=== PATIENT | female | born 1965 | race Caucasian/White ===

== ENCOUNTER 2021-03-28 22:35 | Emergency (ER) | payer MEDICAID, SELFPAY ==
[2021-03-28 22:38] VITALS: BP 132/93; PULSE 105; RESP 18; TEMP 37.2; O2SAT 100; BMI 20.7
--- NOTE | 2021-03-28 22:50 | ED_ITS ---
HPI - Skin/Abscess/Foreign Bdy General Chief complaint: Skin/Abscess/Foreign Body Stated complaint: abscesses on face Time Seen by Provider: 03/28/21 22:48 Source: patient Mode of arrival: ambulatory Limitations: no limitations History of Present Illness MD complaint: laceration and lesion Onset (ago): day(s) (7) Tetanus up to date: yes Location: face Severity: mild Quality: pruritic Pain Consistency: constant Relieving factors: none Exacerbating factors: none Context: none Associated symptoms: denies other symptoms Treatments prior to arrival: other (tried alcohol/calamine lotion) Related Data Previous Rx's Medication Instructions Recorded cephalexin 500 mg capsule 500 mg PO BID 7 Days #14 cap 03/28/21 doxycycline hyclate 100 mg capsule 100 mg PO BID 7 Days #14 cap 03/28/21 mupirocin 2 % topical ointment 1 appl TOPICAL BID 7 Days #15 g 03/28/21 Allergies Allergy/AdvReac Type Severity Reaction Status Date / Time From Haldol Allergy Unknown LOCKJAW Uncoded 04/07/20 17:00 Review of Systems Review of Systems: Constitutional : No Fever, No Chills ENT/Mouth : No sore throat, No Rhinorrhea Eyes: No Eye Pain, No Swelling, No Redness Cardiovascular : No Chest Pain, No SOB Respiratory : No Cough, No Sputum Gastrointestinal : No Nausea, No Vomiting, No Diarrhea, No abdominal Pain Genitourinary : No Dysuria, No Hematuria Musculoskeletal : No joint pain, No Myalgias, No Joint Swelling Skin : pos Skin Lesions, positive skin rash Neuro : No Weakness, No Numbness, No Headache PMFSH Past Medical History Attestation statement: The following information was validated with the patient. Medical History ADHD Gastric ulcer Social History Social History (Updated 03/28/21 @ 23:01 by Radha Zheng DO) Patient Tobacco Use Status: Never used Tobacco Use of substances other than those prescribed or required for medical reasons: No Patient : No Physical Exam Vital Signs: Vital Signs: Last Vital Signs Temp 98.9 F 03/28/21 22:38 Pulse 105 H 03/28/21 22:38 Resp 18 03/28/21 22:38 BP 132/93 H 03/28/21 22:38 Pulse Ox 100 03/28/21 22:38 Body Mass Index 20.7 Appearance: Alert. Oriented X3. No acute distress. Eyes: Pupils equal, round and reactive to light. ENT: Pharynx normal. multiple circular lesions noted on the face with yellow center and surrounding mild erythema 8+ lesions on face no large confluent areas Neck: Normal inspection. Neck supple. CVS: Normal heart rate and rhythm. Pulses normal. Respiratory: No respiratory distress. Breath sounds normal. Abdomen: Soft and nontender. Skin: Skin warm and dry. Normal skin color. Extremities: No lower extremity edema. Neuro: Oriented X 3. No motor deficit. No sensory deficit. MDM - Skin/Abscess/Foreign Bdy MDM Narrative Medical decision making narrative: 55 yo female with multiple lesions on face with mild cellulitis ?bites or excoriated areas from picking - will start on a ntibiotics and topical mupirocin - refer to PCP if not better Discharge Plan Discharge Clinical Impression: Cellulitis Qualifiers: Site of cellulitis: face Qualified Code(s): L03.211 - Cellulitis of face Patient Disposition: Home, Self-Care Instructions: Cellulitis (ED) Additional Instructions: return to ED for any worsening symptoms or concerns do not apply rubbing alcohol Prescriptions: New doxycycline hyclate 100 mg capsule 100 mg PO BID 7 Days Qty: 14 RF: 0 cephalexin 500 mg capsule 500 mg PO BID 7 Days Qty: 14 RF: 0 mupirocin 2 % ointment 1 appl topical BID 7 Days Qty: 15 RF: 0
== END 2021-03-28 23:20 | disposition home or self-care (01) ==
PROVIDERS: Emergency Provider Emergency Medicine; PCP Nurse Practitioner Family
DX: L03.211 Cellulitis of face (principal)
CPT/HCPCS: 99283

== ENCOUNTER 2021-04-12 18:29 | Emergency (ER) | payer MEDICAID, SELFPAY ==
--- NOTE | 2021-04-12 | ECG_ITS ---
Test Reason : CHEST PRESSURE Blood Pressure : / mmHG Vent. Rate : 111 BPM Atrial Rate : 111 BPM P-R Int : 140 ms QRS Dur : 102 ms QT Int : 352 ms P-R-T Axes : 073 078 051 degrees QTc Int : 478 ms Sinus tachycardia Nonspecific ST and T wave abnormality Abnormal ECG When compared with ECG of 25-JUN-2017 16:00, Nonspecific T wave abnormality now evident in Inferior leads Referred By: Generic ED Physician Electronically Signed By:MANDO BOOKER
--- NOTE | ~2021-04-12 | XR_ITS ---
EXAMINATION: XR CHEST CLINICAL INFORMATION: Chest pain. COMPARISON: 06/27/2017 TECHNIQUE: 2 views of the chest were obtained. FINDINGS: The cardiomediastinal and hilar contours are within normal limits. The lungs are clear without focal consolidation, pleural effusion or pneumothorax. Orthopedic hardware involving the left humeral head is partially visualized. Chronic left-sided rib fractures are redemonstrated. XR/XR chest 2V IMPRESSION: No acute process identified.
--- NOTE | ~2021-04-12 | XR_ITS ---
EXAMINATION: XR ABDOMEN KUB CLINICAL INDICATION: Constipation. COMPARISON: None TECHNIQUE: AP view of the abdomen. FINDINGS: There is a deasnsfy-fq-ppqrt stool burden throughout the colon. No pathologically dilated loops of small or large bowel are identified. No large free air is seen. A heterogeneous round calcification which overlies the right hemipelvis and measures 2.6 cm is favored to represent a degenerated fibroid. Small calcifications overlie the low pelvis consistent with phleboliths. The osseous structures are within normal limits. XR/XR KUB IMPRESSION: 1. Dihqpuxy-en-rxvpt stool burden. 2. Nonspecific bowel gas pattern. No pathologically dilated loops of bowel identified.
--- NOTE | ~2021-04-12 | CT_ITS ---
EXAMINATION: CT ABDOMEN AND PELVIS WITH CONTRAST CLINICAL INFORMATION: Abdominal pain and constipation, rule out small bowel obstruction. COMPARISON: KUB from today. TECHNIQUE: Multidetector volumetric images were obtained from the superior aspect of the liver through the pubic symphysis following administration 85 mL of Omnipaque 350 intravenous contrast. Sagittal and coronal reformatted images were obtained on the technologist's workstation. Motion artifact limits some images in the inferior chest and mid abdomen. Oral contrast: No This CT examination was performed using dose optimization techniques as appropriate, variously including the following: *Automated exposure control *Adjustment of mA and/or kV according to patient size (this includes techniques or standardized protocols for targeted exams where dose is matched to indication/reason for exam; i.e. extremities or head) *Use of iterative reconstruction technique DLP: 357 mGy-cm FINDINGS: LUNG BASES: The visualized lung bases are unremarkable. LIVER, GALLBLADDER, AND BILIARY TREE: Unremarkable. PANCREAS: Unremarkable. SPLEEN: Unremarkable. ADRENAL GLANDS: Unremarkable. KIDNEYS AND URETERS: Unremarkable. BLADDER: Unremarkable. GASTROINTESTINAL TRACT: The stomach, small bowel and appendix are unremarkable. Mild diffuse mural thickening and loss of haustration is seen in the descending colon. This is seen to a lesser extent in the sigmoid colon, but is also seen in the rectum. No pericolonic infiltrative changes are seen. ABDOMINAL WALL: No significant hernia is appreciated. LYMPH NODES: No lymphadenopathy. VASCULAR: Unremarkable. PELVIC VISCERA: Fibroid uterus, some with coarse calcification involves the largest in the posterior body. OSSEOUS STRUCTURES: Mild lumbar levoscoliosis mild multilevel degenerative disc disease from L3-L4 and L5-S1. No suspicious abnormality. CT/CT abdomen pelvis w con IMPRESSION: 1. No small bowel obstruction. Mild mural thickening and loss of haustration is seen in the distal colon and rectum, most pronounced in the descending colon. No significant surrounding infiltrative changes are seen. These findings are nonspecific, but given the long segment of involvement, infectious/inflammatory colitis cannot be excluded. The overall appearance is similar to the KUB from earlier today. Short-term radiographic follow-up is recommended within 24 hours to assess for change.
[2021-04-12 19:06] VITALS: BP 170/88; PULSE 117; RESP 16; O2SAT 98; BMI 20.5
[2021-04-12] MEDS: Ibuprofen 600 MG TABLET PO (19:13)
[2021-04-12 20:37] LABS: Basophils Percent Auto 0.1 % (0-2); Eosinophils Percent Auto 0.3 % (0-4); Hematocrit 36.4 % (37-47); Hemoglobin 12.1 g/dl (12.0-16.0); Imm Gran Abs Auto 0.03 X10*3/uL (0.00-0.03); Imm Gran Pct Auto 0.3 % (0.0-0.4); Lymphocytes Absolute Auto 1.5 X10*3/uL (1.2-4.9); Lymphocytes Percent Auto 14.5 % (20-40); MANUAL DIFF FLAG NO; Mean Corpuscular HGB Conc 33.2 g/dl (31.0-35.0); Mean Corpuscular Hemoglobin 28.8 pg (27.0-33.0); Mean Corpuscular Volume 86.7 fL (80-98); Monocytes Absolute Auto 0.7 X10*3/uL (0.1-1.2); Monocytes Percent Auto 7.1 % (2-11); Neutrophils Absolute Auto 7.9 X10*3/uL (2.0-8.3); Neutrophils Percent Auto 77.7 % (45-73); Platelet Count 331 X10*3/uL (160-400); Red Cell Distribution Width 14.9 % (11.0-16.0); White Blood Count 10.2 X10*3/uL (4.8-10.8)
[2021-04-12 20:38] LABS: Appearance Urine HAZY; Color Urine YELLOW; Glucose Urine UA NEG (NEG); Leukocyte Esterase Urine NEG (NEG); Nitrite Urine NEG (NEG); PH 5.5 (5.0-8.0); Specific Gravity - Urine >= 1.030 (1.005-1.025); Urine Blood NEG (NEG); Urine Ketones NEG (NEG); Urine Protein NEG (NEG-TRACE)
[2021-04-12 20:51] LABS: Alanine Aminotransferase 18 U/L (0-31); Albumin Level 4.6 g/dL (3.5-5.0); Alkaline Phosphatase 81 U/L (39-117); Anion Gap 14 (12-20); Aspartate Amino Transferase 26 U/L (5-31); Bilirubin Total 0.3 mg/dL (0.0-1.0); Blood Urea Nitrogen 15 mg/dL (9-16); Calcium 10.2 mg/dL (8.4-10.2); Carbon Dioxide 27 mmol/L (22-29); Chloride 97 mmol/L (96-108); Creatinine Clr Calc Pharmacy 62.1; Estimated Glomerular Filt Rate > 60; Glucose Random 107 mg/dL (60-115); Potassium 4.1 mmol/L (3.3-5.1); Sodium 134 mmol/L (135-145); Total Protein 7.5 g/dL (6.5-8.0)
[2021-04-12 20:56] LABS: Troponin-I High Sensitivity 3.7 ng/L (<3.5-17.0)
--- NOTE | 2021-04-12 21:24 | ED_ITS ---
HPI - Abdominal Pain General Chief Complaint: Abdominal Pain Stated Complaint: Abdominal pain Time Seen by Provider: 04/12/21 20:45 Source: patient Mode of arrival: ambulatory Limitations: no limitations History of Present Illness HPI narrative: 55-year-old female with a past medical history of anxiety, depression, ADD, peptic ulcer, divert here with complaints of lower back pain with radiation to the entire abdomen for several days. Patient tells me that she has had constipation for the last 10 days with small pebble like stools. She has not tried taking any wyzg-cih-niokhfa medications to help her move her bowels. She denies any nausea, vomiting, and diarrhea, urinary symptoms, fevers, chills. Patient tells me that she has been anxious for the last 2 days. She is currently living in a hotel and has no family in this area after her parents .. Related Data Previous Rx's Medication Instructions Recorded cephalexin 500 mg capsule 500 mg PO BID 7 Days #14 cap 03/28/21 doxycycline hyclate 100 mg capsule 100 mg PO BID 7 Days #14 cap 03/28/21 mupirocin 2 % topical ointment 1 appl TOPICAL BID 7 Days #15 g 03/28/21 levofloxacin 750 mg tablet 750 mg PO DAILY 7 Days #7 tab 04/12/21 metronidazole 500 mg tablet 500 mg PO BID #14 tab 04/12/21 (Flagyl) Allergies Allergy/AdvReac Type Severity Reaction Status Date / Time From Haldol Allergy Unknown NERYW Uncoded 04/07/20 17:00 Review of Systems Review of Systems Yes all other systems are reviewed and are negative Constitutional: Reports no additional constitutional complaints, Denies body ache(s), Denies chills, Denies fever(s), Denies headache(s) and Denies weakness Eyes: Reports no additional eye complaints and Denies change in vision Reports system reviewed and no additional complaints, except as documented, Denies dizziness, Denies headache(s), Denies nasal congestion, Denies nasal discharge and Denies neck pain Cardiovascular: Reports no additional cardiovascular complaints, Denies chest pain, Denies leg edema and Denies dyspnea Respiratory: Reports no additional respiratory complaints, Denies cough and Denies dyspnea Gastrointestinal: Reports no additional gastrointestinal complaints, Reports abdominal pain, Reports constipation, Denies diarrhea, Denies nausea and Denies vomiting Genitourinary: Reports no additional female genitourinary complaints and Denies urinary incontinence Musculoskeletal: Reports no additional musculoskeletal complaints, Reports back pain, Denies arthralgias, Denies joint swelling, Denies neck pain, Denies numbness and Denies tingling Skin/Breast: Reports system reviewed and no additional complaints, except as docu and Denies rash Reports system reviewed and no additional complaints, except as documented, Denies Abnormal speech present, Denies dizziness, Denies headache(s), Denies numbness, Denies tingling and Denies weakness Physical Exam Vital Signs: Vital Signs: Last Vital Signs Pulse 117 H 04/12/21 19:06 Resp 16 04/12/21 19:06 BP 170/88 H 04/12/21 19:06 Pulse Ox 98 04/12/21 19:06 Body Mass Index 20.5 Const: General: cooperative, healthy appearing, comfortable and no acute distress Orientation/consciousness: patient oriented x3 Limitations: no limitations HENMT: Head: Yes normal to inspection Ears: hearing grossly normal bilaterally General nose exam: Normal external nose present Face and sinus: Yes normal facial exam Mouth: Normal oral and palatal mucosa present Throat: Yes posterior oropharynx normal Eyes: General: appearance normal, both eyes and all related structures Pupils: Equal, round and reactive pupils present Neck: Neck: Yes normal visual inspection Chest: Chest palpation & inspection: normal inspection of the chest Resp: Effort & Inspection: normal respiratory effort Auscultation: clear to auscultation bilaterally Cardio: Rate: regular rate Rhythm: regular rhythm Peripheral pulses: Peripheral pulses 2+ throughout GI: Inspection: Yes normal to inspection Palpation (GI): Soft to palpation and Tenderness to palpation present (GI) (Diffusely tender. No rebound or guarding) Auscultation: normal bowel sounds Back/Spine/Pelvis: Thoracic/Lumbar Spine: thoracic and lumbar spine normal to inspection Skin: General skin exam: no rashes or lesions noted Neuro: General: patient oriented x3, no focal motor deficits and normal sensation to monofilament Cranial nerves: Yes Equal, round and reactive pupils present Cognition (Neuro): normal cognition Speech: No Abnormal speech present Gait exam (Neuro): Normal gait present Motor exam (neuro): 5/5 motor strength present throughout Extrem: General: Yes normal to inspection Course Course Course Narrative: 55-year-old female here with complaints of generalized back pain and abdominal pain with constipation. On exam mild diffuse tenderness with no rebound or guarding. Patient very anxious, multiple life stressors. Will check labs, UA, EKG, CT 2230-labs unremarkable. Urine is negative. EKG shows no acute finding CT A/P 1. No small bowel obstruction. Mild mural thickening and loss of haustration is seen in the distal colon and rectum, most pronounced in the descending colon. No significant surrounding infiltrative changes are seen. These findings are nonspecific, but given the long segment of involvement, infectious/inflammatory colitis cannot be excluded. The overall appearance is similar to the KUB from earlier today. Short-term radiographic follow-up is recommended within 24 hours to assess for change. Likely colitis. Will treat with course of antibiotics. Patient is tolerating p.o.. Pain is well controlled. Recommend she follow up with her primary care doctor. She also also concerned still over some areas on her skin after diagnosis cellulitis a couple of weeks ago. She tells me she has you took the antibiotics and applying topical antibiotic ointment with continued lesions. She is requesting a topical retin A or topical steroid. 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 Reviewed worrisome signs and symptoms and when to return to the emergency department. Comfortable discharge home. MDM - Abdominal Pain Medical Records Attestation: I reviewed the patient's medical records. Lab Data Attestation: I reviewed the patient's lab results. Result diagrams: 04/12/21 20:29 04/12/21 20:29 Labs: Lab Results 04/12/21 04/12/21 04/12/21 Range/Units 20:29 20:29 20:29 WBC 10.2 (4.8-10.8) X10*3/uL RBC 4.20 (4.20-5.50) X10*6/uL Hgb 12.1 (12.0-16.0) g/dl Hct 36.4 L (37-47) % MCV 86.7 (80-98) fL MCH 28.8 (27.0-33.0) pg MCHC 33.2 (31.0-35.0) g/dl RDW 14.9 (11.0-16.0) % Plt Count 331 (160-400) X10*3/uL MPV 10.0 (9.4-12.3) fL Immature Gran % (Auto) 0.3 (0.0-0.4) % Neut % (Auto) 77.7 H (45-73) % Lymph % (Auto) 14.5 L (20-40) % [place] % (Auto) 7.1 (2-11) % Eos % (Auto) 0.3 (0-4) % Baso % (Auto) 0.1 (0-2) % Lymph # (Auto) 1.5 (1.2-4.9) X10*3/uL [place] # (Auto) 0.7 (0.1-1.2) X10*3/uL Eos # (Auto) 0.0 (0.0-0.4) X10*3/uL Baso # (Auto) 0.0 (0.0-0.2) X10*3/uL Abs Immat Gran (auto) 0.03 (0.00-0.03) X10*3/uL Absolute Neuts (auto) 7.9 (2.0-8.3) X10*3/uL Absolute Nucleated RBC 0.000 (0.0-0.012) X10*3/uL Nucleated RBC % (auto) 0.0 (0.0-0.2) /100WBC Sodium 134 L (135-145) mmol/L Potassium 4.1 (3.3-5.1) mmol/L Chloride 97 (96-108) mmol/L Carbon Dioxide 27 (22-29) mmol/L Anion Gap 14 (12-20) BUN 15 (9-16) mg/dL Creatinine 0.88 (0.5-1.4) mg/dL Estim Creat Clear Calc 62.1 Estimated GFR > 60 Random Glucose 107 (60-115) mg/dL Lactic Acid (0.5-2.0) mmol/L Calcium 10.2 (8.4-10.2) mg/dL Total Bilirubin 0.3 (0.0-1.0) mg/dL AST 26 (5-31) U/L ALT 18 (0-31) U/L Alkaline Phosphatase 81 (39-117) U/L Troponin I High Sens 3.7 (<3.5-17.0) ng/L Total Protein 7.5 (6.5-8.0) g/dL Albumin 4.6 (3.5-5.0) g/dL Urine Color Urine Appearance Urine pH (5.0-8.0) Ur Specific [place] (1.005-1.025) Urine Protein (NEG-TRACE) MG/DL Urine Glucose (UA) (NEG) MG/DL Urine Ketones (NEG) MG/DL Urine Blood (NEG) Urine Nitrite (NEG) Ur Leukocyte Esterase (NEG) 04/12/21 04/12/21 Range/Units 20:29 21:10 WBC (4.8-10.8) X10*3/uL RBC (4.20-5.50) X10*6/uL Hgb (12.0-16.0) g/dl Hct (37-47) % MCV (80-98) fL MCH (27.0-33.0) pg MCHC (31.0-35.0) g/dl RDW (11.0-16.0) % Plt Count (160-400) X10*3/uL MPV (9.4-12.3) fL Immature Gran % (Auto) (0.0-0.4) % Neut % (Auto) (45-73) % Lymph % (Auto) (20-40) % [place] % (Auto) (2-11) % Eos % (Auto) (0-4) % Baso % (Auto) (0-2) % Lymph # (Auto) (1.2-4.9) X10*3/uL [place] # (Auto) (0.1-1.2) X10*3/uL Eos # (Auto) (0.0-0.4) X10*3/uL Baso # (Auto) (0.0-0.2) X10*3/uL Abs Immat Gran (auto) (0.00-0.03) X10*3/uL Absolute Neuts (auto) (2.0-8.3) X10*3/uL Absolute Nucleated RBC (0.0-0.012) X10*3/uL Nucleated RBC % (auto) (0.0-0.2) /100WBC Sodium (135-145) mmol/L Potassium (3.3-5.1) mmol/L Chloride (96-108) mmol/L Carbon Dioxide (22-29) mmol/L Anion Gap (12-20) BUN (9-16) mg/dL Creatinine (0.5-1.4) mg/dL Estim Creat Clear Calc Estimated GFR Random Glucose (60-115) mg/dL Lactic Acid 1.4 (0.5-2.0) mmol/L Calcium (8.4-10.2) mg/dL Total Bilirubin (0.0-1.0) mg/dL AST (5-31) U/L ALT (0-31) U/L Alkaline Phosphatase (39-117) U/L Troponin I High Sens (<3.5-17.0) ng/L Total Protein (6.5-8.0) g/dL Albumin (3.5-5.0) g/dL Urine Color YELLOW Urine Appearance HAZY Urine pH 5.5 (5.0-8.0) Ur Specific [place] >= 1.030 H (1.005-1.025) Urine Protein NEG (NEG-TRACE) MG/DL Urine Glucose (UA) NEG (NEG) MG/DL Urine Ketones NEG (NEG) MG/DL Urine Blood NEG (NEG) Urine Nitrite NEG (NEG) Ur Leukocyte Esterase NEG (NEG) Imaging Data Chest x-ray: Attestation: I personally reviewed and interpreted this imaging study as follows: Radiologist's impression: XR CHEST CLINICAL INFORMATION: Chest pain. COMPARISON: 06/27/2017 TECHNIQUE: 2 views of the chest were obtained. FINDINGS: The cardiomediastinal and hilar contours are within normal limits. The lungs are clear without focal consolidation, pleural effusion or pneumothorax. Orthopedic hardware involving the left humeral head is partially visualized. Chronic left-sided rib fractures are redemonstrated. XR/XR chest 2V IMPRESSION: No acute process identified. Abdominal x-ray: Attestation: I personally reviewed and interpreted this imaging study as follows: Radiologist's impression: e? TECHNIQUE: AP view of the abdomen. FINDINGS: There is a ksvzglje-qn-eblqj stool burden throughout the colon. No pathologically dilated loops of small or large bowel are identified. No large free air is seen. A heterogeneous round calcification which overlies the right hemipelvis and measures 2.6 cm is favored to represent a degenerated fibroid. Small calcifications overlie the low pelvis consistent with phleboliths. The osseous structures are within normal limits. XR/XR KUB IMPRESSION: 1. Txtiknyy-fk-lqdtb stool burden. ? 2. Nonspecific bowel gas pattern. No pathologically dilated loops of bowel identified. ? CT scan - abdomen: Attestation: I personally reviewed and interpreted this imaging study as follows: Radiologist's impression: IMPRESSION: 1. No small bowel obstruction. Mild mural thickening and loss of haustration is seen in the distal colon and rectum, most pronounced in the descending colon. No significant surrounding infiltrative changes are seen. These findings are nonspecific, but given the long segment of involvement, infectious/inflammatory colitis cannot be excluded. The overall appearance is similar to the KUB from earlier today. Short-term radiographic follow-up is recommended within 24 hours to assess for change. ECG Data Attestation: I personally reviewed and interpreted this ECG as follows: ECG interpretation date: 04/12/21 ECG interpretation time: 20:24 Interpretation: Sinus tachycardia with a rate of 111, normal MS, normal QRS, nonspecific ST changes Discharge Plan Discharge Clinical Impression: Colitis Patient Disposition: Home, Self-Care Instructions: Colitis (ED) Additional Instructions: Increase fluids, rest You need to follow-up with your primary care doctor as discussed Continue the topical antibiotic ointment for the skin heat to the abdomen Prescriptions: New metronidazole [Flagyl] 500 mg tablet 500 mg PO BID Qty: 14 RF: 0 levofloxacin 750 mg tablet 750 mg PO DAILY 7 Days Qty: 7 RF: 0 No Action doxycycline hyclate 100 mg capsule 100 mg PO BID 7 Days Qty: 14 RF: 0 cephalexin 500 mg capsule 500 mg PO BID 7 Days Qty: 14 RF: 0 mupirocin 2 % ointment 1 appl topical BID 7 Days Qty: 15 RF: 0 Referrals: Lissy Grijalva NP [Primary Care Provider] - 2 days Interventions: ED Discharge Assessment Last Done: 04/12/21 22:50 Discharge Date/Time: 04/12/21 23:03 [facility] Past Medical History Attestation statement: The following information was validated with the patient. Source: old records reviewed and nursing notes reviewed Medical History ADHD Gastric ulcer Social History Social History Patient Tobacco Use Status: Never used Tobacco Advance Directives: No Advance Directives Information Provided: Yes
[2021-04-12 21:26] LABS: Lactic Acid 1.4 mmol/L (0.5-2.0)
[2021-04-12] MEDS: iohexoL 350 MG/ML 100 ML INFUS..BTL IV (21:35)
== END 2021-04-12 23:03 | disposition home or self-care (01) ==
PROVIDERS: Nurse Practitioner Family; Emergency Provider Emergency Medicine; PCP Nurse Practitioner Family
DX: K52.9 Noninfective gastroenteritis and colitis, unspecified (principal); R10.9 Unspecified abdominal pain; F33.1 Major depressive disorder, recurrent, moderate; M54.5 Low back pain; R07.9 Chest pain, unspecified; Z79.899 Other long term (current) drug therapy
CPT/HCPCS: 36415; 71046; 74018; 74177; 80053; 81003; 83605; 84484; 85025; 93005; 99284; Q9967

== ENCOUNTER 2021-06-20 11:43 | Emergency (ER) | payer MEDICARE, MEDICAID, SELFPAY ==
[2021-06-20 12:18] VITALS: BP 134/82; PULSE 100; RESP 18; O2SAT 100; BMI 20.7
--- NOTE | 2021-06-20 13:52 | ED_ITS ---
[facility] Past Medical History Medical History ADHD Gastric ulcer Social History Social History Patient Tobacco Use Status: Never used Tobacco Advance Directives: No Advance Directives Information Provided: No Physical Exam Vital Signs: Vital Signs: Last Vital Signs Pulse 100 06/20/21 12:18 Resp 18 06/20/21 12:18 BP 134/82 06/20/21 12:18 Pulse Ox 100 06/20/21 12:18 Body Mass Index 20.7 MDM - Burn/Smoke Inhalation Lab Data Result diagrams: 06/20/21 14:55 06/20/21 14:55 Labs: Lab Results 06/20/21 06/20/21 06/20/21 Range/Units 14:50 14:55 14:55 WBC 12.0 H (4.8-10.8) X10*3/uL RBC 4.03 L (4.20-5.50) X10*6/uL Hgb 11.9 L (12.0-16.0) g/dl Hct 35.8 L (37.0-47.0) % MCV 88.8 (80.0-98.0) fL MCH 29.5 (27.0-33.0) pg MCHC 33.2 (31.0-35.0) g/dl RDW 14.3 (11.0-16.0) % Plt Count 430 H (160-400) X10*3/uL MPV 9.9 (9.4-12.3) fL Immature Gran % (Auto) 0.3 (0.0-0.4) % Neut % (Auto) 81.0 H (45-73) % Lymph % (Auto) 12.1 L (20-40) % [place] % (Auto) 5.6 (2-11) % Eos % (Auto) 0.8 (0-4) % Baso % (Auto) 0.2 (0-2) % Lymph # (Auto) 1.5 (1.2-4.9) X10*3/uL [place] # (Auto) 0.7 (0.1-1.2) X10*3/uL Eos # (Auto) 0.1 (0.0-0.4) X10*3/uL Baso # (Auto) 0.0 (0.0-0.2) X10*3/uL Abs Immat Gran (auto) 0.04 H (0.00-0.03) X10*3/uL Absolute Neuts (auto) 9.7 H (2.0-8.3) x10*3/uL Absolute Nucleated RBC 0.000 (0.0-0.012) X10*3/uL Nucleated RBC % (auto) 0.0 (0.0-0.2) /100WBC Sodium 135 (135-145) mmol/L Potassium 4.7 (3.3-5.1) mmol/L Chloride 100 (96-108) mmol/L Carbon Dioxide 22 (22-29) mmol/L Anion Gap 18 (12-20) BUN 20 H (9-16) mg/dL Creatinine 0.93 (0.5-1.4) mg/dL Estim Creat Clear Calc 59.7 Estimated GFR > 60 Random Glucose 132 H (60-115) mg/dL Calcium 10.1 (8.4-10.2) mg/dL Magnesium 2.2 (1.6-2.6) mg/dL Total Bilirubin 0.3 (0.0-1.0) mg/dL AST 28 (5-31) U/L ALT 16 (0-31) U/L Alkaline Phosphatase 85 (39-117) U/L Total Protein 7.4 (6.5-8.0) g/dL Albumin 4.4 (3.5-5.0) g/dL Urine Color YELLOW Urine Appearance HAZY Urine pH 8.0 (5.0-8.0) Ur Specific [place] 1.015 (1.005-1.025) Urine Protein NEG (NEG-TRACE) MG/DL Urine Glucose (UA) NEG (NEG) MG/DL Urine Ketones NEG (NEG) MG/DL Urine Blood NEG (NEG) Urine Nitrite NEG (NEG) Ur Leukocyte Esterase NEG (NEG) Discharge Plan Discharge Clinical Impression: Abdominal pain, Back pain, Left against medical advice Patient Disposition: Left Against Medical Advice Prescriptions: No Action doxycycline hyclate 100 mg capsule 100 mg PO BID 7 Days Qty: 14 RF: 0 cephalexin 500 mg capsule 500 mg PO BID 7 Days Qty: 14 RF: 0 mupirocin 2 % ointment 1 appl topical BID 7 Days Qty: 15 RF: 0 metronidazole [Flagyl] 500 mg tablet 500 mg PO BID Qty: 14 RF: 0 levofloxacin 750 mg tablet 750 mg PO DAILY 7 Days Qty: 7 RF: 0 HPI - Burn/Smoke Inhalation General Chief complaint: Back Pain/Injury Stated complaint: Back Pain Side Pain No Injury Time Seen by Provider: 06/20/21 13:41 Related Data Previous Rx's Medication Instructions Recorded cephalexin 500 mg capsule 500 mg PO BID 7 Days #14 cap 03/28/21 doxycycline hyclate 100 mg capsule 100 mg PO BID 7 Days #14 cap 03/28/21 mupirocin 2 % topical ointment 1 appl TOPICAL BID 7 Days #15 g 03/28/21 levofloxacin 750 mg tablet 750 mg PO DAILY 7 Days #7 tab 04/12/21 metronidazole 500 mg tablet 500 mg PO BID #14 tab 04/12/21 (Flagyl) Allergies Allergy/AdvReac Type Severity Reaction Status Date / Time From Haldol Allergy Unknown NERYW Uncoded 04/07/20 17:00
[2021-06-20 15:06] LABS: MANUAL DIFF FLAG NO
[2021-06-20] MEDS: diazePAM 5 MG TABLET 10 MG PO (15:06)
[2021-06-20 15:08] LABS: Basophils Percent Auto 0.2 % (0-2); Eosinophils Absolute Auto 0.1 X10*3/uL (0.0-0.4); Eosinophils Percent Auto 0.8 % (0-4); Hematocrit 35.8 % (37.0-47.0); Hemoglobin 11.9 g/dl (12.0-16.0); Imm Gran Abs Auto 0.04 X10*3/uL (0.00-0.03); Imm Gran Pct Auto 0.3 % (0.0-0.4); Lymphocytes Absolute Auto 1.5 X10*3/uL (1.2-4.9); Lymphocytes Percent Auto 12.1 % (20-40); Mean Corpuscular HGB Conc 33.2 g/dl (31.0-35.0); Mean Corpuscular Hemoglobin 29.5 pg (27.0-33.0); Mean Corpuscular Volume 88.8 fL (80.0-98.0); Mean Platelet Volume 9.9 fL (9.4-12.3); Monocytes Absolute Auto 0.7 X10*3/uL (0.1-1.2); Monocytes Percent Auto 5.6 % (2-11); Neutrophils Absolute Auto 9.7 x10*3/uL (2.0-8.3); Platelet Count 430 X10*3/uL (160-400); Red Blood Count 4.03 X10*6/uL (4.20-5.50); Red Cell Distribution Width 14.3 % (11.0-16.0)
[2021-06-20 15:09] LABS: Appearance Urine HAZY; Color Urine YELLOW; Glucose Urine UA NEG (NEG); Leukocyte Esterase Urine NEG (NEG); Nitrite Urine NEG (NEG); Specific Gravity - Urine 1.015 (1.005-1.025); Urine Blood NEG (NEG); Urine Ketones NEG (NEG); Urine Protein NEG (NEG-TRACE)
[2021-06-20 15:27] LABS: Alanine Aminotransferase 16 U/L (0-31); Albumin Level 4.4 g/dL (3.5-5.0); Alkaline Phosphatase 85 U/L (39-117); Anion Gap 18 (12-20); Aspartate Amino Transferase 28 U/L (5-31); Bilirubin Total 0.3 mg/dL (0.0-1.0); Blood Urea Nitrogen 20 mg/dL (9-16); Calcium 10.1 mg/dL (8.4-10.2); Carbon Dioxide 22 mmol/L (22-29); Chloride 100 mmol/L (96-108); Creatinine Clr Calc Pharmacy 59.7; Estimated Glomerular Filt Rate > 60; Glucose Random 132 mg/dL (60-115); Magnesium 2.2 mg/dL (1.6-2.6); Potassium 4.7 mmol/L (3.3-5.1); Sodium 135 mmol/L (135-145); Total Protein 7.4 g/dL (6.5-8.0)
--- NOTE | 2021-06-20 15:44 | ED.BACK ---
HPI - Back Pain/Injury General Chief Complaint: Back Pain/Injury Stated Complaint: Back Pain Side Pain No Injury Time Seen by Provider: 06/20/21 13:41 Source: patient Mode of arrival: ambulatory Limitations: no limitations History of Present Illness HPI Narrative: 55-year-old female with a past medical history anxiety, depression, ADD, peptic ulcer and diverticulosis presenting to the ED with complaints of atraumatic mid to lower back pain radiating to her abdomen for the past month worse today. Denies any fevers, chills, dizziness, headaches, neck pain/stiffness, trouble swallowing or breathing, chest pain or shortness of breath, dyspnea on exertion, orthopnea, palpitations, nausea/vomiting/diarrhea, constipation, black or bloody stools, rashes, hematuria, paresthesias, history of IV drug use or any other symptoms complaints or concerns at this time. Reports that she is currently on Suboxone and has been sober for the past 3 months. Reports that she last used heroin where she sniffed she never used IV drugs she reports. Denies any other symptoms complaints or concerns. MD elicited complaint: back pain Onset (ago): month(s) (1) Timing: constant and progressively worsening Severity: moderate Similar Symptoms Previously: Yes Quality: aching Location: lumbar spine Radiation: abdomen Exacerbating factors: none Relieving factors: none Context: unknown Associated symptoms: denies other symptoms Work related injury: No Related Data Previous Rx's Medication Instructions Recorded cephalexin 500 mg capsule 500 mg PO BID 7 Days #14 cap 03/28/21 doxycycline hyclate 100 mg capsule 100 mg PO BID 7 Days #14 cap 03/28/21 mupirocin 2 % topical ointment 1 appl TOPICAL BID 7 Days #15 g 03/28/21 levofloxacin 750 mg tablet 750 mg PO DAILY 7 Days #7 tab 04/12/21 metronidazole 500 mg tablet 500 mg PO BID #14 tab 04/12/21 (Flagyl) Allergies Allergy/AdvReac Type Severity Reaction Status Date / Time From Haldol Allergy Unknown LOCKJAW Uncoded 04/07/20 17:00 Review of Systems Review of Systems: Constitutional : No trauma, No Weight loss, No Fever, No Chills, ENT/Mouth : No Hearing loss, No Ear Pain, No Nasal Congestion, No Sinus Pain, No Hoarseness, No sore throat, No Rhinorrhea, No Swallowing Difficulty Cardiovascular : No Chest Pain, No SOB Respiratory : No Cough, No Dyspnea Gastrointestinal : No Nausea, No Vomiting, No Diarrhea, + abdominal Pain, No Hematochezia, No Melena Genitourinary : No Dysuria, No Urinary Frequency, No Hematuria, No Urinary or Bowel Incontinence/retention Musculoskeletal : + Back pain, No neck pain, No joint stiffness, No joint swelling Skin : No Skin Lesions, No rash or signs of infection Neuro : No Weakness, No radiation, No Numbness, No Paresthesias, No headache, no loss of bowel or bladder incontinence, no saddle anesthesia, Focal weakness, No radiation Denies history of IV drug usage. Yes all other systems are reviewed and are negative [facility] Past Medical History Attestation statement: The following information was validated with the patient. Medical History ADHD Gastric ulcer Social History Social History Patient Tobacco Use Status: Never used Tobacco Advance Directives: No Advance Directives Information Provided: No Physical Exam Vital Signs: Vital Signs: Last Vital Signs Pulse 100 06/20/21 12:18 Resp 18 06/20/21 12:18 BP 134/82 06/20/21 12:18 Pulse Ox 100 06/20/21 12:18 Body Mass Index 20.7 vital signs have been reviewed as normal and appeared to be correct. Blood pressure normal. Heart rate normal. Respiration rate normal. Temperature normal. Oxygen saturation normal. Appearance: Alert. Oriented X3. No acute distress. Head: Normal external exam. Normocephalic. Atraumatic. No Mejia signs noted. No raccoon eyes noted Eyes: PERRLA. EOMI. Conjunctiva and sclera normal. Eyelids normal. ENT: EAC normal. TM's Normal. Pharynx normal. Uvula midline. Moist mucous membranes. No trismus noted. No drooling noted. No muffled voice noted. Neck: Normal inspection. Neck supple. FROM. No adenopathy. Thyroid Normal. No meningeal signs. No neck mass noted. CVS: Normal heart rate and rhythm. Heart sound normal. No murmurs noted. Pulses normal throughout. Respiratory: No respiratory distress. Painless inspiration. Breath sounds normal. No wheezes/rales/rhonchi noted. Chest nontender. No accessory muscle usage noted or decreased air movement noted. Abdomen: Soft and nontender. Bowel sounds normal in all 4 quadrants. No distention noted. No organomegaly noted. No visible injury noted. Back: No CVA tenderness. Full range of motion noted. No obvious deformities, or edema. Mild para-spinal muscular tenderness from lumbar region to coccyx. Full ROM in back and lower extremities. 5/5 strength hip extension/flexion, abduction, adduction. Mild Lumbar pain with hip flexion against resistance. Straight leg raise test negative on right; Straight leg raise test negative on left; Reflexes normal ankle and knee bilaterally; EHL motor strength normal bilaterally. No rashes/lesion/induration/fluctuance or signs infection noted. Skin: Skin warm and dry. Normal skin color. Normal skin turgor. No rashes/lesions/lacerations noted. Extremities: No lower extremity edema. Extremities exhibit normal range of motion. Extremities nontender. Neuro: Oriented X 3. No motor deficit. No sensory deficit. Reflexes normal. Patient has a normal steady gait. Course Course Course Narrative: 14pm Pt c likely muscular pain, but could be herniated disc. Neuro exam shows no deficits. Not cauda equina syndrome. Not c/w AAA/epidural abscess/dissection.No high risk Hx (Incont, fever, immunosupp, recent surgery/LP, coag, signif trauma, wt loss, puls mass, hx/o Ca, TB, or IVDU) to warrant MRI. Although due to patient reporting abdominal pain will obtain a CT scan abdomen pelvis with IV contrast labs and UA provide symptomatic treatment and re-evaluate. Reevaluation(s) Reevaluation #1: - patient has been walking up and down the exam room and [place] [facility] [place] going into other patient's rooms demanding narcotics she has also bending over backwards on the bed no evidence of back pain on exam when she is doing that. crime scene technician came over to bring the patient for CT scan and patient declined CT scan she reports that she wants narcotics I explained to her that if she is on Suboxone I am hesitant about giving narcotics that is why I offered Toradol and Valium she reports that she will be leaving against medical advice because she is hungry and no longer wants to be here any longer. Therefore at this time she will be leaving against medical advice labs were reviewed and patient has an elevated white blood cell count [id number]. Mild anemia which is new when compared to March although patient declined rectal exam. Platelets 430. BUN 20. Random glucose 132. Otherwise all other labs are within normal limits and UA was within normal limits no evidence of UTI. Patient declined CT scan therefore at this time she will be leaving against medical advice. Time: 15:47 MDM - Back Pain/Injury Medical Records Attestation: I reviewed the patient's medical records. Lab Data Attestation: I reviewed the patient's lab results. Result diagrams: 06/20/21 14:55 06/20/21 14:55 Labs: Lab Results 06/20/21 06/20/21 06/20/21 Range/Units 14:50 14:55 14:55 WBC 12.0 H (4.8-10.8) X10*3/uL RBC 4.03 L (4.20-5.50) X10*6/uL Hgb 11.9 L (12.0-16.0) g/dl Hct 35.8 L (37.0-47.0) % MCV 88.8 (80.0-98.0) fL MCH 29.5 (27.0-33.0) pg MCHC 33.2 (31.0-35.0) g/dl RDW 14.3 (11.0-16.0) % Plt Count 430 H (160-400) X10*3/uL MPV 9.9 (9.4-12.3) fL Immature Gran % (Auto) 0.3 (0.0-0.4) % Neut % (Auto) 81.0 H (45-73) % Lymph % (Auto) 12.1 L (20-40) % [place] % (Auto) 5.6 (2-11) % Eos % (Auto) 0.8 (0-4) % Baso % (Auto) 0.2 (0-2) % Lymph # (Auto) 1.5 (1.2-4.9) X10*3/uL [place] # (Auto) 0.7 (0.1-1.2) X10*3/uL Eos # (Auto) 0.1 (0.0-0.4) X10*3/uL Baso # (Auto) 0.0 (0.0-0.2) X10*3/uL Abs Immat Gran (auto) 0.04 H (0.00-0.03) X10*3/uL Absolute Neuts (auto) 9.7 H (2.0-8.3) x10*3/uL Absolute Nucleated RBC 0.000 (0.0-0.012) X10*3/uL Nucleated RBC % (auto) 0.0 (0.0-0.2) /100WBC Sodium 135 (135-145) mmol/L Potassium 4.7 (3.3-5.1) mmol/L Chloride 100 (96-108) mmol/L Carbon Dioxide 22 (22-29) mmol/L Anion Gap 18 (12-20) BUN 20 H (9-16) mg/dL Creatinine 0.93 (0.5-1.4) mg/dL Estim Creat Clear Calc 59.7 Estimated GFR > 60 Random Glucose 132 H (60-115) mg/dL Calcium 10.1 (8.4-10.2) mg/dL Magnesium 2.2 (1.6-2.6) mg/dL Total Bilirubin 0.3 (0.0-1.0) mg/dL AST 28 (5-31) U/L ALT 16 (0-31) U/L Alkaline Phosphatase 85 (39-117) U/L Total Protein 7.4 (6.5-8.0) g/dL Albumin 4.4 (3.5-5.0) g/dL Urine Color YELLOW Urine Appearance HAZY Urine pH 8.0 (5.0-8.0) Ur Specific [place] 1.015 (1.005-1.025) Urine Protein NEG (NEG-TRACE) MG/DL Urine Glucose (UA) NEG (NEG) MG/DL Urine Ketones NEG (NEG) MG/DL Urine Blood NEG (NEG) Urine Nitrite NEG (NEG) Ur Leukocyte Esterase NEG (NEG) Discharge Plan Discharge Clinical Impression: Abdominal pain, Back pain, Left against medical advice Patient Disposition: Left Against Medical Advice Instructions: Abdominal Pain (ED), Against Medical Advice (ED), Back Pain (ED) Prescriptions: No Action doxycycline hyclate 100 mg capsule 100 mg PO BID 7 Days Qty: 14 RF: 0 cephalexin 500 mg capsule 500 mg PO BID 7 Days Qty: 14 RF: 0 mupirocin 2 % ointment 1 appl topical BID 7 Days Qty: 15 RF: 0 metronidazole [Flagyl] 500 mg tablet 500 mg PO BID Qty: 14 RF: 0 levofloxacin 750 mg tablet 750 mg PO DAILY 7 Days Qty: 7 RF: 0
== END 2021-06-20 16:01 | disposition left against medical advice (07) ==
PROVIDERS: Physician Assistant Medical; Emergency Provider Emergency Medicine; PCP Nurse Practitioner Family
DX: M54.50 Low back pain, unspecified (principal); R10.9 Unspecified abdominal pain; F11.20 Opioid dependence, uncomplicated; Z76.5 Malingerer [conscious simulation]
CPT/HCPCS: 36415; 80053; 81003; 83735; 85025; 99283; 99284

== ENCOUNTER 2022-05-08 21:52 | Inpatient (IN) | payer MEDICARE, MEDICAID, SELFPAY ==
--- NOTE | ~2022-05-08 | US_ITS ---
EXAMINATION: US VENOUS ULTRASOUND WITH DOPPLER LOWER EXTREMITY, BILATERAL CLINICAL INFORMATION: Bilateral lower extremity swelling. Assess for occult DVT. COMPARISON: None TECHNIQUE: Ultrasound of the deep veins is performed from the hip to the calf with compression sonography and color and pulse Doppler assessment. Spectral analysis with color-flow imaging is performed. FINDINGS: RIGHT: There is normal venous compression and respiratory variation and augmented flow. The visualized common femoral vein, superficial femoral vein, profunda femoral vein, popliteal vein, and the trifurcation region shows no evidence of deep venous thrombosis. No popliteal fossa cyst. LEFT: There is normal venous compression and respiratory variation and augmented flow. The visualized common femoral vein, superficial femoral vein, profunda femoral vein, popliteal vein, and the trifurcation region shows no evidence of deep venous thrombosis. There is a popliteal fossa cyst measuring approximately 1.8 x 4.3 x 2.7 cm. No edema tracking in soft tissue planes. US/US venous duplex LE BI IMPRESSION: 1. No DVT demonstrated in the bilateral lower extremity. 2. Left popliteal fossa cyst 1.8 x 4.3 x 2.7 cm.
--- NOTE | ~2022-05-08 | CT_ITS ---
EXAMINATION: CT head/brain wo IV con CLINICAL INFORMATION: Reason for Exam fall, OD COMPARISON: None. TECHNIQUE: Contiguous axial imaging was performed from the skull base to vertex without intravenous contrast. Sagittal and coronal reformatted images were obtained. This CT examination was performed using dose optimization techniques as appropriate, variously including the following: * Automated exposure control * Adjustment of mA and/or kV according to patient size (this includes techniques or standardized protocols for targeted exams where dose is matched to indication/reason for exam; i.e. extremities or head) Use of iterative reconstruction technique DLP: 660 mGy-cm FINDINGS: Mild left frontal scalp soft tissue swelling/hematoma. No acute osseous abnormality.. The visualized paranasal sinuses are clear. Bilateral mastoid effusion is and left greater than right middle ear opacification. There is no evidence of acute intracranial hemorrhage or territorial infarction. No abnormal mass effect or midline shift is seen. Broderick to white matter differentiation is well preserved. No extra-axial fluid collections are identified. No hydrocephalus. No significant volume loss. There is no abnormal attenuation within the brain parenchyma. CT/CT head/brain wo IV con IMPRESSION: 1. No acute intracranial abnormality including hemorrhage, mass effect, hydrocephalus, or acute territorial edematous infarction. 2. Bilateral mastoid effusions and left greater than right middle ear opacification. Correlate clinically for otomastoiditis.
--- NOTE | ~2022-05-08 | XR_ITS ---
EXAMINATION: XR RIBS, BILATERAL CLINICAL INFORMATION: Rib pain status post fall. COMPARISON: Chest radiographs dated 04/12/2021. TECHNIQUE: 3 views of the bilateral ribs were obtained along with a PA view of the chest. A skin marker overlies the inferior left ribs. FINDINGS: Lungs are clear. No consolidation, pneumothorax, or pleural effusion. The cardiomediastinal silhouette and pulmonary vasculature are normal. Osseous structures are unremarkable. Ribs are intact. No fractures are identified. XR/XR ribs BI min 4V w CXR1V IMPRESSION: Unremarkable examination.
[2022-05-08 22:17] VITALS: BP 120/65; PULSE 100; RESP 14; TEMP 36.6; O2SAT 96; BMI 22.6
--- NOTE | 2022-05-08 22:20 | PC.NURSE ---
Per EMS, patient with overdose of heroin (?and possibly some cocaine) requiring narcan on scene. Patient with +fall and +head strike during overdose, now with laceration to forehead. Patient is awake, alert on arrival. She states i've been anemic before and needed blood transfusions, but unable to answer if she's on blood thinners.
--- NOTE | 2022-05-08 23:25 | ECG_ITS ---
Test Reason : OD Blood Pressure : / mmHG Vent. Rate : 099 BPM Atrial Rate : 099 BPM P-R Int : 134 ms QRS Dur : 074 ms QT Int : 376 ms P-R-T Axes : 053 066 073 degrees QTc Int : 482 ms Normal sinus rhythm Normal ECG When compared with ECG of 12-APR-2021 20:24, ST less depressed in Inferior leads Lateral leads Referred By: Tiffany Stokes Electronically Signed By:GEORGINA BROWN MD
--- NOTE | 2022-05-08 23:29 | ED_ITS ---
HPI - Overdose General Chief Complaint: Overdose Stated Complaint: overdose Time Seen by Provider: 05/08/22 22:19 Source: patient Mode of arrival: ambulatory Limitations: no limitations History of Present Illness HPI Narrative: Patient comes to the emergency room via EMS. Patient accidentally overdosed using heroin. Patient states that this was accidental, did not mean hurting herself. Patient states that she has a restraining order against her ex partner, somehow he was able to get in touch with her over the phone. Patient was very emotional, decided to use heroin and accidentally overdose. Patient also requesting to have her blood levels checked. Patient states that she is known to have anemia and lately she has been feeling more tired than usual. Patient denies chest pain or shortness of breath. At this time, patient complaining of localized pain in the forehead, patient has a laceration. Related Data Previous Rx's Medication Instructions Recorded cephalexin 500 mg capsule 500 mg PO BID 7 days #14 caps 03/28/21 doxycycline hyclate 100 mg capsule 100 mg PO BID 7 days #14 caps 03/28/21 mupirocin 2 % topical ointment 1 appl topical BID 7 days #15 grams 03/28/21 levofloxacin 750 mg tablet 750 mg PO DAILY 7 days #7 tabs 04/12/21 metronidazole 500 mg tablet 500 mg PO BID #14 tabs 04/12/21 (Flagyl) Allergies Allergy/AdvReac Type Severity Reaction Status Date / Time From Haldol Allergy Unknown LOCKJAW Uncoded 04/07/20 17:00 Review of Systems Review of Systems: Constitutional : No Weight loss, No Fever, No Chills, No Night Sweats, No Fatigue, No Malaise ENT/Mouth : No Hearing loss, No Ear Pain, No Nasal Congestion, No Sinus Pain, No Hoarseness, No sore throat, No Rhinorrhea, No Swallowing Difficulty Eyes: No Eye Pain, No Swelling, No Redness, No Foreign Body, No Discharge, No Vision Changes Cardiovascular : No Chest Pain, No SOB, No Dyspnea on Exertion, No Orthopnea, No Edema, No Palpitations Respiratory : No Cough, No Sputum, No Wheezing, No Smoke Exposure, No Dyspnea Gastrointestinal : No Nausea, No Vomiting, No Diarrhea, No Constipation, No abdominal Pain, No Hematochezia, No Melena Genitourinary : no irregular bleeding, No Dysuria, No Urinary Frequency, No Hematuria, No Urinary Incontinence, No Urgency, No Flank Pain, No Urinary Flow Changes, No Hesitancy Musculoskeletal : No joint pain, No Myalgias, No Joint Swelling Skin : laceration in forehead 2cm, irregular Neuro : No Weakness, No Numbness, No Paresthesias, No Loss of Consciousness, No Dizziness, No Headache Psych : No Anxiety/Panic, No Depression, No SI/HI/AH/VH, No Social Issues, Heme/Lymph: No Bruising, No Bleeding,No Lymphadenopathy Endocrine : No Polyuria, No Polydipsia, No Temperature Intolerance [facility] Past Medical History Medical History ADHD Gastric ulcer Social History Social History Patient Tobacco Use Status: Never used Tobacco Advance Directives: No Advance Directives Information Provided: Yes Physical Exam Vital Signs: Vital Signs: Last Vital Signs Temp 97.8 F 05/08/22 22:17 Pulse 108 H 05/09/22 01:43 Resp 15 05/09/22 01:43 BP 141/80 H 05/09/22 01:43 Pulse Ox 98 05/09/22 01:43 O2 Del Method 05/09/22 01:43 BMI result Body Mass Index 22.6 Const: Other: Appearance: Alert. Oriented X3. No acute distress. Eyes: Pupils equal, round and reactive to light. ENT: Pharynx normal. Neck: Normal inspection. Neck supple. No lymph nodes noted. No crepitus CVS: Normal heart rate and rhythm. Pulses normal. Normal S1 and S2 Respiratory: No respiratory distress. Breath sounds normal. No Wheezing. No rales Abdomen: Soft and nontender. No rigidity. No distention. On digital rectal exam, there was almost no stool present. Skin: Skin warm and dry. Diffusely pale Extremities: No lower extremity edema. No Lacerations. No Rash Neuro: Oriented X 3. No motor deficit. No sensory deficit. Moving all extremities. No slurred speech. CN 2 through 12 grossly intact Psych: calm, cooperative, normal affect Course Course Course Narrative: Will go ahead and check patient's basic labs. Head CT pending. Patient wanted stitches in the forehead. Patient agreeable with plan of treatment. CARE/SUDE consult pending, patient will be provided with home Narcan upon discharge Patient's hemoglobin is 5.3. Patient states that she has known that she is anemic, but she has never been this low. States that she has been transfused in the past. Patient concerned about receiving blood from COVID immunized patients or COVID positive donors. I discussed with the patient takes screening process, it may be impossible to know if the blood that she would be receiving is coming from immunized or previously infected COVID patients. I discussed the risks versus the benefits of the blood transfusion. Patient agrees to go ahead and do the blood transfusion. Patient aware she will be receiving close to 3 units, if not more. Head CT negative for acute pathology. Patient received 5 sutures in the forehead Records from [facility] been requested and are pending. Patient being admitted by Dr. Reed Procedures Laceration Laceration 1: Site: face (Forehead) Size (cm): 2 Description: linear and irregular Depth: simple, single layer Local Anesthetic: lidocaine 2% Amount of anesthesia used (mL): 4 Pre-repair: wound explored Skin layer closed with: nylon Size (cm): 6-0 Number of sutures: 5 MDM - Overdose Lab Data Result diagrams: 05/08/22 23:50 05/08/22 23:50 Labs: Lab Results 05/08/22 05/08/22 05/08/22 Range/Units 23:45 23:50 23:50 WBC 13.6 H (4.8-10.8) X10*3/uL RBC 2.45 L D (4.20-5.50) X10*6/uL Hgb 5.3 L* D (12.0-16.0) g/dl Hct 18.4 L* D (37.0-47.0) % MCV 75.1 L (80.0-98.0) fL MCH 21.6 L (27.0-33.0) pg MCHC 28.8 L (31.0-35.0) g/dl RDW 25.2 H (11.0-16.0) % Plt Count 642 H D (160-400) X10*3/uL MPV 9.3 L (9.4-12.3) fL Immature Gran % (Auto) 0.6 H (0.0-0.4) % Neut % (Auto) 83.0 H (45-73) % Lymph % (Auto) 8.9 L (20-40) % [place] % (Auto) 7.2 (2-11) % Eos % (Auto) 0.2 (0-4) % Baso % (Auto) 0.1 (0-2) % Lymph # (Auto) 1.2 (1.2-4.9) X10*3/uL [place] # (Auto) 1.0 (0.1-1.2) X10*3/uL Eos # (Auto) 0.0 (0.0-0.4) X10*3/uL Baso # (Auto) 0.0 (0.0-0.2) X10*3/uL Abs Immat Gran (auto) 0.08 H (0.00-0.03) X10*3/uL Absolute Neuts (auto) 11.3 H (2.0-8.3) x10*3/uL Absolute Nucleated RBC 0.000 (0.0-0.012) X10*3/uL Nucleated RBC % (auto) 0.0 (0.0-0.2) /100WBC PT 11.0 (10.0-13.1) SEC INR 1.0 (0.9-1.1) Sodium (135-145) mmol/L Potassium (3.3-5.1) mmol/L Chloride (96-108) mmol/L Carbon Dioxide (22-29) mmol/L Anion Gap (12-20) BUN (9-16) mg/dL Creatinine (0.5-1.4) mg/dL Estim Creat Clear Calc Estimated GFR Random Glucose (60-115) mg/dL Calcium (8.4-10.2) mg/dL Total Bilirubin (0.0-1.0) mg/dL Direct Bilirubin (0.0-0.5) mg/dL AST (5-31) U/L ALT (0-31) U/L Alkaline Phosphatase (39-117) U/L Troponin I High Sens (<3.5-17.0) ng/L Total Protein (6.5-8.0) g/dL Albumin (3.5-5.0) g/dL Stool Occult Blood (NEGATIVE) COVID-19 (MORGAN) Negative (Negative) COVID-19 Clin Com See Note Crossmatch 05/08/22 05/08/22 05/09/22 Range/Units 23:50 23:50 01:28 WBC (4.8-10.8) X10*3/uL RBC (4.20-5.50) X10*6/uL Hgb (12.0-16.0) g/dl Hct (37.0-47.0) % MCV (80.0-98.0) fL MCH (27.0-33.0) pg MCHC (31.0-35.0) g/dl RDW (11.0-16.0) % Plt Count (160-400) X10*3/uL MPV (9.4-12.3) fL Immature Gran % (Auto) (0.0-0.4) % Neut % (Auto) (45-73) % Lymph % (Auto) (20-40) % [place] % (Auto) (2-11) % Eos % (Auto) (0-4) % Baso % (Auto) (0-2) % Lymph # (Auto) (1.2-4.9) X10*3/uL [place] # (Auto) (0.1-1.2) X10*3/uL Eos # (Auto) (0.0-0.4) X10*3/uL Baso # (Auto) (0.0-0.2) X10*3/uL Abs Immat Gran (auto) (0.00-0.03) X10*3/uL Absolute Neuts (auto) (2.0-8.3) x10*3/uL Absolute Nucleated RBC (0.0-0.012) X10*3/uL Nucleated RBC % (auto) (0.0-0.2) /100WBC PT (10.0-13.1) SEC INR (0.9-1.1) Sodium 139 (135-145) mmol/L Potassium 4.4 (3.3-5.1) mmol/L Chloride 105 (96-108) mmol/L Carbon Dioxide 22 (22-29) mmol/L Anion Gap 16 (12-20) BUN 20 H (9-16) mg/dL Creatinine 0.92 (0.5-1.4) mg/dL Estim Creat Clear Calc 62.4 Estimated GFR > 60 Random Glucose 79 (60-115) mg/dL Calcium 8.8 D (8.4-10.2) mg/dL Total Bilirubin 0.2 (0.0-1.0) mg/dL Direct Bilirubin < 0.2 (0.0-0.5) mg/dL AST 23 (5-31) U/L ALT 14 (0-31) U/L Alkaline Phosphatase 110 D (39-117) U/L Troponin I High Sens 21.7 H (<3.5-17.0) ng/L Total Protein 7.1 (6.5-8.0) g/dL Albumin 4.3 (3.5-5.0) g/dL Stool Occult Blood (NEGATIVE) COVID-19 (MORGAN) (Negative) COVID-19 Clin Com Crossmatch See Detail 05/09/22 Range/Units 01:28 WBC (4.8-10.8) X10*3/uL RBC (4.20-5.50) X10*6/uL Hgb (12.0-16.0) g/dl Hct (37.0-47.0) % MCV (80.0-98.0) fL MCH (27.0-33.0) pg MCHC (31.0-35.0) g/dl RDW (11.0-16.0) % Plt Count (160-400) X10*3/uL MPV (9.4-12.3) fL Immature Gran % (Auto) (0.0-0.4) % Neut % (Auto) (45-73) % Lymph % (Auto) (20-40) % [place] % (Auto) (2-11) % Eos % (Auto) (0-4) % Baso % (Auto) (0-2) % Lymph # (Auto) (1.2-4.9) X10*3/uL [place] # (Auto) (0.1-1.2) X10*3/uL Eos # (Auto) (0.0-0.4) X10*3/uL Baso # (Auto) (0.0-0.2) X10*3/uL Abs Immat Gran (auto) (0.00-0.03) X10*3/uL Absolute Neuts (auto) (2.0-8.3) x10*3/uL Absolute Nucleated RBC (0.0-0.012) X10*3/uL Nucleated RBC % (auto) (0.0-0.2) /100WBC PT (10.0-13.1) SEC INR (0.9-1.1) Sodium (135-145) mmol/L Potassium (3.3-5.1) mmol/L Chloride (96-108) mmol/L Carbon Dioxide (22-29) mmol/L Anion Gap (12-20) BUN (9-16) mg/dL Creatinine (0.5-1.4) mg/dL Estim Creat Clear Calc Estimated GFR Random Glucose (60-115) mg/dL Calcium (8.4-10.2) mg/dL Total Bilirubin (0.0-1.0) mg/dL Direct Bilirubin (0.0-0.5) mg/dL AST (5-31) U/L ALT (0-31) U/L Alkaline Phosphatase (39-117) U/L Troponin I High Sens (<3.5-17.0) ng/L Total Protein (6.5-8.0) g/dL Albumin (3.5-5.0) g/dL Stool Occult Blood NEGATIVE (NEGATIVE) COVID-19 (MORGAN) (Negative) COVID-19 Clin Com Crossmatch Imaging Data CT scan - head: Radiologist's impression: FINDINGS: Mild left frontal scalp soft tissue swelling/hematoma. No acute osseous abnormality.. The visualized paranasal sinuses are clear. Bilateral mastoid effusion is and left greater than right middle ear opacification. There is no evidence of acute intracranial hemorrhage or territorial infarction. No abnormal mass effect or midline shift is seen. [place] to white matter differentiation is well preserved. No extra-axial fluid collections are identified. No hydrocephalus. No significant volume loss. There is no abnormal attenuation within the brain parenchyma. ? CT/CT head/brain wo IV con IMPRESSION: ? 1.? No acute intracranial abnormality including hemorrhage, mass effect, hydrocephalus, or acute territorial edematous infarction. 2.? Bilateral mastoid effusions and left greater than right middle ear opacification. Correlate clinically for otomastoiditis. ? Critical Care Time Critical Care Time Critical Care Time: Yes Total Critical Care Time: 60 Attestation: I have personally provided critical care time. Time includes review of lab data, radiology results, discussion with consultants, and monitoring for potential decompensation. Intervention performed as documented. Discharge Plan Discharge Clinical Impression: Drug overdose, Laceration, Anemia Patient Disposition: Admitted As Inpatient Prescriptions: No Action doxycycline hyclate 100 mg capsule 100 mg PO BID 7 Days Qty: 14 0RF cephalexin 500 mg capsule 500 mg PO BID 7 Days Qty: 14 0RF mupirocin 2 % ointment 1 appl topical BID 7 Days Qty: 15 0RF metronidazole [Flagyl] 500 mg tablet 500 mg PO BID Qty: 14 0RF levofloxacin 750 mg tablet 750 mg PO DAILY 7 Days Qty: 7 0RF
[2022-05-08] MEDS: Naloxone HCl Nasal TAKE HOME 4 MG SPRAY NOSTRILALT (23:46)
[2022-05-08 23:55] LABS: MANUAL DIFF FLAG NO
[2022-05-09] VITALS (15 sets, daily range): BP systolic 111–160; BP diastolic 57–90; PULSE 76–108; RESP 14–20; TEMP 36.7–37.6; O2SAT 96–99
[2022-05-09 00:14] LABS: COVID-19 Test Negative (Negative)
[2022-05-09 00:21] LABS: Basophils Percent Auto 0.1 % (0-2); Eosinophils Percent Auto 0.2 % (0-4); Imm Gran Abs Auto 0.08 X10*3/uL (0.00-0.03); Imm Gran Pct Auto 0.6 % (0.0-0.4); Lymphocytes Absolute Auto 1.2 X10*3/uL (1.2-4.9); Lymphocytes Percent Auto 8.9 % (20-40); Mean Corpuscular HGB Conc 28.8 g/dl (31.0-35.0); Mean Corpuscular Hemoglobin 21.6 pg (27.0-33.0); Mean Corpuscular Volume 75.1 fL (80.0-98.0); Mean Platelet Volume 9.3 fL (9.4-12.3); Monocytes Percent Auto 7.2 % (2-11); Neutrophils Absolute Auto 11.3 x10*3/uL (2.0-8.3); Platelet Count 642 X10*3/uL (160-400); Red Blood Count 2.45 X10*6/uL (4.20-5.50); Red Cell Distribution Width 25.2 % (11.0-16.0); White Blood Count 13.6 X10*3/uL (4.8-10.8)
[2022-05-09 00:26] LABS: Hematocrit 18.4 % (37.0-47.0); Hemoglobin 5.3 g/dl (12.0-16.0)
[2022-05-09 00:37] LABS: Alanine Aminotransferase 14 U/L (0-31); Albumin Level 4.3 g/dL (3.5-5.0); Alkaline Phosphatase 110 U/L (39-117); Anion Gap 16 (12-20); Aspartate Amino Transferase 23 U/L (5-31); Bilirubin Direct < 0.2 mg/dL (0.0-0.5); Bilirubin Total 0.2 mg/dL (0.0-1.0); Blood Urea Nitrogen 20 mg/dL (9-16); Calcium 8.8 mg/dL (8.4-10.2); Carbon Dioxide 22 mmol/L (22-29); Chloride 105 mmol/L (96-108); Creatinine Clr Calc Pharmacy 62.4; Estimated Glomerular Filt Rate > 60; Glucose Random 79 mg/dL (60-115); Potassium 4.4 mmol/L (3.3-5.1); Sodium 139 mmol/L (135-145); Total Protein 7.1 g/dL (6.5-8.0)
[2022-05-09 00:43] LABS: Troponin-I High Sensitivity 21.7 ng/L (<3.5-17.0)
--- NOTE | 2022-05-09 00:44 | PC.NURSE ---
Patient' hemoglobin noted low. Patient states she's had several blood transfusions in the past and endorses a history of anemia. She also states she doesn't want to receive blood from anyone who has been vaccinated for COVID-19. MD Keon Stokes made aware now.
[2022-05-09 01:40] LABS: OBS Int Ctl Valid YES; OBS1 NEGATIVE (NEGATIVE)
[2022-05-09] MEDS: Lidocaine HCl 2 % 20 ML VIAL 4 ML INFILTRATI (01:43)
--- NOTE | 2022-05-09 01:53 | PC.NURSE ---
medical records requested from [facility] per Dr Stokes @[id number].
--- NOTE | 2022-05-09 02:11 | PC.NURSE ---
Medical records received from [facility] at 2010.
[2022-05-09 02:12] LABS: Iron 8 mcg/dL (30-160)
[2022-05-09 02:36] LABS: Percent Iron Saturation 1 % (15-50); Total Iron Binding Capacity 553 mcg/dL (228-428); Unsaturated Iron Binding 545 ug/dL
--- NOTE | 2022-05-09 02:49 | PC.NURSE ---
patient tolerating blood transfusion well.
--- NOTE | 2022-05-09 04:52 | PC.NURSE ---
patient tolerating 2nd unit of blood. no signs/symptoms of reaction for 15 minutes.
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
[2022-05-09 05:56] LABS: MANUAL DIFF FLAG NO
[2022-05-09 06:02] LABS: Basophils Percent Auto 0.2 % (0-2); Eosinophils Absolute Auto 0.1 X10*3/uL (0.0-0.4); Hematocrit 22.7 % (37.0-47.0); Imm Gran Abs Auto 0.04 X10*3/uL (0.00-0.03); Imm Gran Pct Auto 0.4 % (0.0-0.4); Lymphocytes Absolute Auto 2.3 X10*3/uL (1.2-4.9); Lymphocytes Percent Auto 21.8 % (20-40); Mean Corpuscular HGB Conc 30.4 g/dl (31.0-35.0); Mean Corpuscular Hemoglobin 24.1 pg (27.0-33.0); Mean Corpuscular Volume 79.4 fL (80.0-98.0); Mean Platelet Volume 9.8 fL (9.4-12.3); Monocytes Absolute Auto 1.3 X10*3/uL (0.1-1.2); Monocytes Percent Auto 12.3 % (2-11); Neutrophils Absolute Auto 6.9 x10*3/uL (2.0-8.3); Neutrophils Percent Auto 64.3 % (45-73); Platelet Count 611 X10*3/uL (160-400); Red Blood Count 2.86 X10*6/uL (4.20-5.50); Red Cell Distribution Width 25.2 % (11.0-16.0); White Blood Count 10.7 X10*3/uL (4.8-10.8)
[2022-05-09 06:11] LABS: Hemoglobin 6.9 g/dl (12.0-16.0)
[2022-05-09 06:18] LABS: Anion Gap 16 (12-20); Blood Urea Nitrogen 14 mg/dL (9-16); Calcium 8.9 mg/dL (8.4-10.2); Carbon Dioxide 23 mmol/L (22-29); Chloride 105 mmol/L (96-108); Creatinine Clr Calc Pharmacy 73.5; Estimated Glomerular Filt Rate > 60; Glucose Random 78 mg/dL (60-115); Potassium 4.3 mmol/L (3.3-5.1); Sodium 140 mmol/L (135-145)
[2022-05-09 06:20] LABS: B Type Natriuretic Peptide 88 pg/mL (<100); Troponin-I High Sensitivity 16.5 ng/L (<3.5-17.0)
[2022-05-09 06:23] LABS: Ferritin 3 ng/mL (10-250)
[2022-05-09 06:45] LABS: Folate 16.8 ng/mL (> or = 4.0); Vitamin B12 457 pg/mL (200-900)
[2022-05-09] MEDS: 0.9 % Sodium Chloride Flush 3 ML SYRINGE IVFLUSH ×2 (07:08→17:56)
--- NOTE | 2022-05-09 08:47 | PHA.MEDREC ---
Pharmacy Consult ? Medication Reconciliation Pharmacy has completed the medication reconciliation. Patient reports her medications were just fedex to her house. Reports she use to be on Bupropion 150 mg, Clonazepam 2 mg BID and Adderall 30 mg BID but stopped about 3 months ago and reports those worked well for her. Deanna Navarrete, YemiD
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
[2022-05-09] MEDS: Pantoprazole Sodium 40 MG/10 ML VIAL IVPUSH ×2 (10:02→17:57)
[2022-05-09] MEDS: Dextrose 5 % and 0.9 % NaCl 1,000 ML 80 ML IVCONT ×2 (10:04→22:58)
--- NOTE | 2022-05-09 10:10 | MHC.CM.PN ---
Attempted to meet with patient in regards to discharge planning. Nursing care currently being provided. Will attempt to meet again. Continue to monitor for d/c needs.
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
[2022-05-09] MEDS: Iron Sucrose Complex 200 MG in 0.9 % Sodium Chloride 100 ML 440 MG IV (17:54)
--- NOTE | 2022-05-09 18:09 | PC.NURSE ---
patient a/o x4 . pearrla . heart rate regular at 88 beats per minute . lungs clear . patient has stitches on left forehead from fall previously today when she overdosed on heroin . skin pink warm and dry . IV in left and right forams . abdomen soft . positive bowel sounds in all four quadrants . patient appears anxious and speaking rabidly about life events . patient aware of plan of care .
--- NOTE | 2022-05-09 20:40 | HO.ADDICTCON ---
History of Present Illness Date of Service: 05/09/2022 Chief Complaint: symptomatic anemia Reason for Consult: opioid overdose HPI Narrative: Patient is a 56 year old female medically admitted with anemia following opioid overdose. Patient seen by [facility] earlier in the day and expressed interest in restarting suboxone for OUD. Seen in overflow room 1, awake, alert, plasant and engaged in interview. Reporting log history of OUD, but was previously engaged in treatment with [facility] up until a month or two ago when she was unable to get to app. Patient reports and confirmed by [facility], that she has been prescribed suboxone 16mg QD, Adderrall 30mg BID and Klonopin 2mg BID--she reports abruptly discontinuing all medications last month. Reports she was so sick, I wanted to for several weeks --experiencing withdrawals. Denies any opioid use until last evening when she used one bag intranasally. She does report daily or almost daily crack cocaine use for the last three weeks. Patient is quite tangential, overly inclusive, labile, and visibly anxious. She appears to have insight into her disorganized presenations and states, now you know why I was prescribed adderrall, it's the only thing that helped me feel normal . Reports history of psychiatric admissions. No BH in place at this time Patient identifying numerous stresses, including being evicted in the near future from where she is currently living, loss of providers and medications. Review of Systems Gastrointestinal: Denies diarrhea, Denies nausea and Denies vomiting Psychiatric: Reports anxiety, Reports difficulty concentrating, Reports hopelessness and Reports panic attacks Diagnostics Vital Signs (24Hr): Vital Signs - 24 hr 05/08/22 22:17 05/09/22 01:43 05/09/22 02:32 Temperature 97.8 F 98.5 F Pulse Rate 100 108 H 104 H Respiratory Rate 14 15 19 Blood Pressure 120/65 141/80 H 160/61 H Pulse Oximetry 96 98 Oxygen Delivery Method Room Air Room Air 05/09/22 02:48 05/09/22 03:38 05/09/22 04:17 Temperature 98.6 F 98.5 F Pulse Rate 95 101 H 98 Respiratory Rate 17 20 15 Blood Pressure 120/70 133/71 124/75 Pulse Oximetry 97 98 Oxygen Delivery Method Room Air Room Air 05/09/22 04:36 05/09/22 04:52 05/09/22 06:09 Temperature 98.5 F 98.6 F Pulse Rate 93 82 92 Respiratory Rate 16 15 17 Blood Pressure 129/74 111/57 L 150/66 H Pulse Oximetry 97 Oxygen Delivery Method Room Air 05/09/22 08:05 05/09/22 08:52 05/09/22 09:08 Temperature 98.0 F 98.1 F 98.1 F Pulse Rate 81 89 85 Respiratory Rate 18 18 18 Blood Pressure 150/90 H 124/70 144/81 H Pulse Oximetry Oxygen Delivery Method 05/09/22 09:56 05/09/22 10:01 05/09/22 14:10 Temperature 99.6 F 98.4 F 98.5 F Pulse Rate 88 100 89 Respiratory Rate 14 18 17 Blood Pressure 157/77 H 157/77 H 137/87 Pulse Oximetry 96 Oxygen Delivery Method Room Air BMI result Body Mass Index 22.6 Labs Results: 05/09/22 05:52 05/09/22 05:52 Labs: Laboratory Results - last 48 hr 05/08/22 05/08/22 05/08/22 23:45 23:50 23:50 WBC 13.6 H RBC 2.45 L D Hgb 5.3 L* D Hct 18.4 L* D MCV 75.1 L MCH 21.6 L MCHC 28.8 L RDW 25.2 H Plt Count 642 H D MPV 9.3 L Immature Gran % (Auto) 0.6 H Neut % (Auto) 83.0 H Lymph % (Auto) 8.9 L [place] % (Auto) 7.2 Eos % (Auto) 0.2 Baso % (Auto) 0.1 Lymph # (Auto) 1.2 [place] # (Auto) 1.0 Eos # (Auto) 0.0 Baso # (Auto) 0.0 Abs Immat Gran (auto) 0.08 H Absolute Neuts (auto) 11.3 H Absolute Nucleated RBC 0.000 Nucleated RBC % (auto) 0.0 Smear Path Review SEE NOTE PT 11.0 INR 1.0 Sodium Potassium Chloride Carbon Dioxide Anion Gap BUN Creatinine Estim Creat Clear Calc Estimated GFR Random Glucose Calcium Iron TIBC % Saturation Unsat Iron Binding Ferritin Total Bilirubin Direct Bilirubin AST ALT Alkaline Phosphatase Troponin I High Sens B-Natriuretic Peptide Total Protein Albumin Vitamin B12 Folate Stool Occult Blood COVID-19 ([facility]) Negative COVID-19 Clin Com See Note Blood Type Antibody Screen Crossmatch 05/08/22 05/08/22 05/08/22 23:50 23:50 23:50 WBC RBC Hgb Hct MCV MCH MCHC RDW Plt Count MPV Immature Gran % (Auto) Neut % (Auto) Lymph % (Auto) [place]gs % (Auto) Eos % (Auto) Baso % (Auto) Lymph # (Auto) [place] # (Auto) Eos # (Auto) Baso # (Auto) Abs Immat Gran (auto) Absolute Neuts (auto) Absolute Nucleated RBC Nucleated RBC % (auto) Smear Path Review PT INR Sodium 139 Potassium 4.4 Chloride 105 Carbon Dioxide 22 Anion Gap 16 BUN 20 H Creatinine 0.92 Estim Creat Clear Calc 62.4 Estimated GFR > 60 Random Glucose 79 Calcium 8.8 D Iron 8 L TIBC 553 H % Saturation 1 L Unsat Iron Binding 545 Ferritin 3 L Total Bilirubin 0.2 Direct Bilirubin < 0.2 AST 23 ALT 14 Alkaline Phosphatase 110 D Troponin I High Sens 21.7 H B-Natriuretic Peptide Total Protein 7.1 Albumin 4.3 Vitamin B12 457 Folate 16.8 Stool Occult Blood COVID-19 ([facility]) COVID-19 [employer] Com Blood Type Antibody Screen Crossmatch 05/09/22 05/09/22 05/09/22 01:28 01:28 05:52 WBC 10.7 RBC 2.86 L Hgb 6.9 L* D Hct 22.7 L D MCV 79.4 L MCH 24.1 L MCHC 30.4 L RDW 25.2 H Plt Count 611 H MPV 9.8 Immature Gran % (Auto) 0.4 Neut % (Auto) 64.3 Lymph % (Auto) 21.8 [place]gs % (Auto) 12.3 H Eos % (Auto) 1.0 Baso % (Auto) 0.2 Lymph # (Auto) 2.3 [place] # (Auto) 1.3 H Eos # (Auto) 0.1 Baso # (Auto) 0.0 Abs Immat Gran (auto) 0.04 H Absolute Neuts (auto) 6.9 Absolute Nucleated RBC 0.000 Nucleated RBC % (auto) 0.0 Smear Path Review PT INR Sodium Potassium Chloride Carbon Dioxide Anion Gap BUN Creatinine Estim Creat Clear Calc Estimated GFR Random Glucose Calcium Iron TIBC % Saturation Unsat Iron Binding Ferritin Total Bilirubin Direct Bilirubin AST ALT Alkaline Phosphatase Troponin I High Sens B-Natriuretic Peptide Total Protein Albumin Vitamin B12 Folate Stool Occult Blood NEGATIVE COVID-19 ([facility]GAN) COVID-19 [employer] Blood Type O Positive Antibody Screen NEGATIVE Crossmatch See Detail 05/09/22 05/09/22 05:52 05:52 WBC RBC Hgb Hct MCV MCH MCHC RDW Plt Count MPV Immature Gran % (Auto) Neut % (Auto) Lymph % (Auto) Twiggs % (Auto) Eos % (Auto) Baso % (Auto) Lymph # (Auto) [place] # (Auto) Eos # (Auto) Baso # (Auto) Abs Immat Gran (auto) Absolute Neuts (auto) Absolute Nucleated RBC Nucleated RBC % (auto) Smear Path Review PT INR Sodium 140 Potassium 4.3 Chloride 105 Carbon Dioxide 23 Anion Gap 16 BUN 14 Creatinine 0.78 Estim Creat Clear Calc 73.5 Estimated GFR > 60 Random Glucose 78 Calcium 8.9 Iron TIBC % Saturation Unsat Iron Binding Ferritin Total Bilirubin Direct Bilirubin AST ALT Alkaline Phosphatase Troponin I High Sens 16.5 B-Natriuretic Peptide 88 Total Protein Albumin Vitamin B12 Folate Stool Occult Blood COVID-19 ([facility]GAN) COVID-[place] Blood Type Antibody Screen Crossmatch Imaging Radiology Impressions: ITS Impressions Head CT 05/09/22 00:20 IMPRESSION: 1. No acute intracranial abnormality including hemorrhage, mass effect, hydrocephalus, or acute territorial edematous infarction. 2. Bilateral mastoid effusions and left greater than right middle ear opacification. Correlate clinically for otomastoiditis. Ribs w/Chest X-Ray 05/09/22 08:13 IMPRESSION: Unremarkable examination. Mental Status Exam Mental Status Exam Patient Appearance: Appropriate Patient Orientation: Person, Place, Time and Situation Level of Consciousness: Awake, Restless and Alert Patient Behavior: Talkative, Restless, Anxious and Crying Mood Description: Anxious Affect Description: Labile and Expansive Thought Process: Distracted Thought Content: positive for Tangential Judgement: Fair Medications Medications Current Medications Acetaminophen (Acetaminophen 325 Mg Tablet) 650 mg PO Q6H PRN PRN Reason: Pain, Mild (Pain Scale 1-3) Docusate Sodium (Docusate Sodium 100 Mg Capsule) 100 mg PO DAILY PRN PRN Reason: Constipation Dextrose/Sodium Chloride (D5ns) 1,000 mls @ 80 mls/hr IVCONT .[id number] [facility] Last Admin: 05/09/22 10:04 Dose: 80 mls/hr Ondansetron HCl (Ondansetron Hcl 4 Mg/2 Ml Vial) 4 mg IVPUSH Q8H PRN PRN Reason: Nausea and Vomiting Pantoprazole Sodium (Pantoprazole Sodium 40 Mg/10 Ml Vial) 40 mg IVPUSH BID@0630,1630 [facility] Last Admin: 05/09/22 17:57 Dose: 40 mg Sodium Chloride (0.9 % Sodium Chloride Flush 3 Ml Syringe) 3 ml IVFLUSH QSHIFT [facility] Last Admin: 05/09/22 17:56 Dose: 3 ml Allergies Allergies Allergy/AdvReac Type Severity Reaction Status Date / Time From Haldol Allergy Unknown LOCKJAW Uncoded 04/07/20 17:00 Assessment & Plan Assessment & Plan (1) Opioid use disorder: Status: Acute Code(s): F11.90 - Opioid use, unspecified, uncomplicated Assessment and Plan: awaiting UDS collection did not appear to be experiencing any withdrawal sx, denies any opioid withdrawal sx will restart suboxone at lower dose prior to discharge records to be requested from [facility] and [facility] to assist patient with reengaging in treatment with them I spent ___40___ minutes with the patient and/or on the patient floor today, greater than?50% of which was spent counseling/coordinating care. [facility] Past Medical History Medical History (Updated 05/09/22 @ 21:13 by Pricila Keene CNP) ADHD Gastric ulcer Family History Family History (Updated 05/09/22 @ 05:47 by Natali Reed MD) Other No family history of coronary artery disease Surgical History Surgical History (Updated 05/09/22 @ 05:47 by Natali Reed MD) No pertinent past surgical history Social History Social History (Updated 05/09/22 @ 05:48 by Natali Reed MD) Household Members: None Housing: Homeless Alcohol intake: current Patient Tobacco Use Status: Never used Tobacco Use of substances other than those prescribed or required for medical reasons: Yes Substance Use Type: Crack/Cocaine and Heroin Advance Directives: No Advance Directives Information Provided: Yes service: No Current occupational status: unemployed
[2022-05-09 21:57] LABS: Amphetamine Screen Urine Not Detected (Not Detect); Barbiturates, Urine Not Detected (Not Detect); Benzodiazepines Screen Urine Not Detected (Not Detect); Cannabinoid Screen Urine Not Detected (Not Detect); Cocaine Screen Urine POSITIVE (Not Detect); Fentanyl, urine POSITIVE (Not Detect); Opiate Screen Urine Not Detected (Not Detect); Phencyclidine Screen Urine Not Detected (Not Detect)
[2022-05-10] VITALS (7 sets, daily range): BP systolic 129–157; BP diastolic 70–90; PULSE 78–91; RESP 16–20; TEMP 36.4–37.1; O2SAT 93–99
[2022-05-10] MEDS: LORazepam 0.5 MG TABLET PO (00:01)
[2022-05-10] MEDS: traZODone HCL 50 MG TABLET PO (03:03)
[2022-05-10 08:27] LABS: Basophils Percent Auto 0.4 % (0-2); Eosinophils Absolute Auto 0.3 X10*3/uL (0.0-0.4); Eosinophils Percent Auto 3.1 % (0-4); Hematocrit 28.1 % (37.0-47.0); Hemoglobin 8.9 g/dl (12.0-16.0); Imm Gran Abs Auto 0.04 X10*3/uL (0.00-0.03); Imm Gran Pct Auto 0.5 % (0.0-0.4); Lymphocytes Absolute Auto 1.9 X10*3/uL (1.2-4.9); Lymphocytes Percent Auto 23.1 % (20-40); MANUAL DIFF FLAG NO; Mean Corpuscular HGB Conc 31.7 g/dl (31.0-35.0); Mean Corpuscular Hemoglobin 25.9 pg (27.0-33.0); Mean Corpuscular Volume 81.7 fL (80.0-98.0); Mean Platelet Volume 9.7 fL (9.4-12.3); Monocytes Absolute Auto 1.1 X10*3/uL (0.1-1.2); Monocytes Percent Auto 13.7 % (2-11); Neutrophils Absolute Auto 4.8 x10*3/uL (2.0-8.3); Neutrophils Percent Auto 59.2 % (45-73); Platelet Count 456 X10*3/uL (160-400); Red Blood Count 3.44 X10*6/uL (4.20-5.50); Red Cell Distribution Width 22.5 % (11.0-16.0); White Blood Count 8.2 X10*3/uL (4.8-10.8)
[2022-05-10 08:47] LABS: Anion Gap 13 (12-20); Blood Urea Nitrogen 7 mg/dL (9-16); Calcium 8.4 mg/dL (8.4-10.2); Carbon Dioxide 26 mmol/L (22-29); Chloride 107 mmol/L (96-108); Estimated Glomerular Filt Rate > 60; Glucose Random 85 mg/dL (60-115); Potassium 3.7 mmol/L (3.3-5.1); Sodium 142 mmol/L (135-145)
[2022-05-10 08:57] LABS: MANUAL DIFF FLAG NO
[2022-05-10 09:02] LABS: Basophils Percent Auto 0.5 % (0-2); Eosinophils Absolute Auto 0.3 X10*3/uL (0.0-0.4); Eosinophils Percent Auto 3.3 % (0-4); Hematocrit 27.4 % (37.0-47.0); Hemoglobin 8.7 g/dl (12.0-16.0); Imm Gran Abs Auto 0.03 X10*3/uL (0.00-0.03); Imm Gran Pct Auto 0.4 % (0.0-0.4); Lymphocytes Absolute Auto 1.6 X10*3/uL (1.2-4.9); Lymphocytes Percent Auto 21.4 % (20-40); Mean Corpuscular HGB Conc 31.8 g/dl (31.0-35.0); Mean Corpuscular Hemoglobin 25.7 pg (27.0-33.0); Mean Corpuscular Volume 81.1 fL (80.0-98.0); Mean Platelet Volume 9.7 fL (9.4-12.3); Monocytes Percent Auto 12.5 % (2-11); Neutrophils Absolute Auto 4.7 x10*3/uL (2.0-8.3); Neutrophils Percent Auto 61.9 % (45-73); Platelet Count 425 X10*3/uL (160-400); Red Blood Count 3.38 X10*6/uL (4.20-5.50); Red Cell Distribution Width 22.6 % (11.0-16.0); White Blood Count 7.7 X10*3/uL (4.8-10.8)
[2022-05-10 09:19] LABS: Anion Gap 12 (12-20); Blood Urea Nitrogen 6 mg/dL (9-16); Calcium 8.3 mg/dL (8.4-10.2); Carbon Dioxide 26 mmol/L (22-29); Chloride 107 mmol/L (96-108); Creatinine Clr Calc Pharmacy 88.3; Estimated Glomerular Filt Rate > 60; Glucose Random 89 mg/dL (60-115); Potassium 3.6 mmol/L (3.3-5.1); Sodium 141 mmol/L (135-145)
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
[2022-05-10] MEDS: Iron Sucrose Complex 200 MG in 0.9 % Sodium Chloride 100 ML 440 MG IV (12:18)
[2022-05-10] MEDS: Dextrose 5 % and 0.9 % NaCl 1,000 ML 80 ML IVCONT (12:45)
[2022-05-10] MEDS: Pantoprazole Sodium 40 MG/10 ML VIAL IVPUSH (16:42)
[2022-05-10] MEDS: Ferrous Sulfate 324 MG TABLET.DR PO (16:42)
[2022-05-10] MEDS: Acetaminophen 325 MG TABLET 975 MG PO (20:53)
[2022-05-10] MEDS: 0.9 % Sodium Chloride Flush 3 ML SYRINGE IVFLUSH (23:34)
[2022-05-11] MEDS: Dextrose 5 % and 0.9 % NaCl 1,000 ML 80 ML IVCONT ×2 (00:34→13:54)
[2022-05-11] MEDS: traZODone HCL 50 MG TABLET PO (02:01)
[2022-05-11 03:44] VITALS: BP 154/72; PULSE 86; RESP 17; TEMP 36.6; O2SAT 100
[2022-05-11] MEDS: Acetaminophen 325 MG TABLET 650 MG PO ×3 (04:28→22:33)
[2022-05-11] MEDS: Pantoprazole Sodium 40 MG/10 ML VIAL IVPUSH (05:31)
[2022-05-11 05:48] LABS: MANUAL DIFF FLAG NO
[2022-05-11 05:50] LABS: Basophils Percent Auto 0.3 % (0-2); Eosinophils Absolute Auto 0.2 X10*3/uL (0.0-0.4); Eosinophils Percent Auto 2.3 % (0-4); Hematocrit 29.2 % (37.0-47.0); Hemoglobin 9.1 g/dl (12.0-16.0); Imm Gran Abs Auto 0.05 X10*3/uL (0.00-0.03); Imm Gran Pct Auto 0.6 % (0.0-0.4); Lymphocytes Absolute Auto 1.9 X10*3/uL (1.2-4.9); Mean Corpuscular HGB Conc 31.2 g/dl (31.0-35.0); Mean Corpuscular Hemoglobin 25.6 pg (27.0-33.0); Mean Corpuscular Volume 82.3 fL (80.0-98.0); Mean Platelet Volume 9.9 fL (9.4-12.3); Monocytes Absolute Auto 1.1 X10*3/uL (0.1-1.2); Monocytes Percent Auto 13.8 % (2-11); Neutrophils Absolute Auto 4.7 x10*3/uL (2.0-8.3); Platelet Count 452 X10*3/uL (160-400); Red Blood Count 3.55 X10*6/uL (4.20-5.50); Red Cell Distribution Width 22.4 % (11.0-16.0); White Blood Count 7.9 X10*3/uL (4.8-10.8)
[2022-05-11 06:18] LABS: Anion Gap 15 (12-20); Blood Urea Nitrogen 3 mg/dL (9-16); Calcium 8.5 mg/dL (8.4-10.2); Carbon Dioxide 25 mmol/L (22-29); Chloride 106 mmol/L (96-108); Creatinine Clr Calc Pharmacy 94.1; Estimated Glomerular Filt Rate > 60; Glucose Random 96 mg/dL (60-115); Potassium 3.6 mmol/L (3.3-5.1); Sodium 142 mmol/L (135-145)
--- NOTE | 2022-05-11 06:22 | PC.NURSE ---
Patient remains alert and oriented, on continuos D5 0.9%NS. Assisted to the bathroom several times for Multiple urinations. Encouraged lots of plain fluids.
--- NOTE | 2022-05-11 07:00 | CA_ITS ---
Transthoracic Echocardiogram Patient (Last, First, Middle): Delores Artis, Gender: Female Date of : 1965 Age: 56 Procedure Date: 05/11/2022 Procedure Type: Transthoracic Echocardiogram Location: S3E Height: 167.64 cm Weight: 54.43 kg BSA: 1.61 m2 Heart Rate: bpm BP: 157 / 77 mmHg Mathematics Lecturer: Referring MD: Rafael Bustillos MD Symptoms: Drug overdose; indeterminate trops Study Quality: Fair ECG Rhythm: Sinus Conclusions: - Normal left ventricular size and systolic function. There is mildly increased left ventricular wall thickness. The visually estimated ejection fraction is between 65-70%. - E/E prime ratio is between 8 and 15 consistent with indeterminate filling pressures. - Normal right ventricular cavity size and systolic function. Findings Left Ventricle Normal left ventricular size and systolic function. There is mildly increased left ventricular wall thickness. The visually estimated ejection fraction is between 65-70%. There is no evidence of regional wall motion abnormalities. Abnormal diastolic function is noted. Spectral Doppler is indicative of a pseudonormal filling pattern. E/E prime ratio is between 8 and 15 consistent with indeterminate filling pressures. Right Ventricle Normal right ventricular cavity size and systolic function. Atria The left atrium is mildly dilated. Aortic Valve Normal aortic valve structure and function. There is no aortic valve stenosis. There is no aortic valve regurgitation. Mitral Valve Normal mitral valve structure and function. There is mild mitral valve regurgitation. There is no mitral valve stenosis. Pulmonic Valve Normal pulmonic valve structure and function. There is no pulmonic valve regurgitation. Tricuspid Valve Normal tricuspid valve structure and function. There is trace tricuspid valve regurgitation. Normal right atrial pressure. There is no evidence of pulmonary hypertension. Great Vessels All visible segments of the aorta are normal in size. The visualized portions of the pulmonary artery and branches are normal. Venous The inferior vena cava is normal in size and collapses greater than 50% with inspiration. Pericardium/Pleural There is no evidence of pericardial effusion. Prior Study Comparison No prior study available for comparison. Measurements 2D Linear Measurements IVSd: 1.06 0.6-0.9/0.6-1.0 cm LVIDd: 4.11 3.9-5.3/4.2-5.9 cm LVIDd Index: 2.55 2.4-3.2/2.2-3.1 cm/m2 LVIDs: 2.73 2.0-3.6 cm LVPWd: 1.11 0.7-1.1 cm Ao Root: 3.30 2.1-3.5 cm LA Diam: 4.00 2.7-3.8/3.0-4.0 cm LAIDs Index: 2.48 1.5-2.3 cm/m2 LV Mass: 185.38 67-162/88-224 g LV Mass Index: 115.14 43-95/49-115 g/m2 LVOT Diam: 2.00 3.0+(-)1.3 cm Mitral Valve MV Pk E: 0.98 MV PK A: 0.69 MV Decel Time: 193.00 E/A: 1.40 E'Lateral: 8.16 E'Medial: 8.92 E/E' Med: 11.00 E/E' Lat: 12.00 PHT: 56.00 MVA PHT: 3.93 Decel Stanton: 5.07 Aortic Valve AoV Pk Chao: 1.47 AoV Mn Chao: 0.98 AoV VTI: 0.39 AoV Pk Grad: 9.00 Aov Mn Grad: 5.00 AMANDA Cont.VTI: 2.30 LVOT LVOT Pk Chao: 1.32 LVOT Mn Chao: 0.83 LVOT VTI: 0.29 LVOT Pk Grad: 7.00 LVOT Mn Grad: 3.00 LVOT Diam: 2.00 LVOT Area: 3.14 Diastolic Function MV Pk E: 0.98 MV Pk A: 0.69 E/A: 1.40 E'Medial: 8.92 E/E' Med: 11.00 E' Laterial: 8.16 E/E' Lat: 12.00 Right Ventricle TAPSE (mm): 32.00 Tricuspid Valve TR Pk Chao: 2.31 TR Pk Grad: 21.00 RA Press: 3.00 RVSP: 24.00 Great Vessels Aorta Ao Root-2D: 3.30 2.0-3.7 cm Ao Asc: 3.00 2.1-3.4 cm Pulmonary Valve PV Pk Chao: 0.99 Peak PV Grad: 4.00 Updated in Other Vendor System with Status of Final Alf Santamaria MD electronically signed on 05/12/2022 12:00:07 AM with status of Final
[2022-05-11 08:00] VITALS: BP 129/60; PULSE 77; RESP 17; TEMP 37.2; O2SAT 97
[2022-05-11] MEDS: 0.9 % Sodium Chloride Flush 3 ML SYRINGE IVFLUSH ×2 (08:32→22:33)
[2022-05-11] MEDS: Ferrous Sulfate 324 MG TABLET.DR PO (08:32)
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
[2022-05-11 11:57] VITALS: BP 162/92; PULSE 78; RESP 18; TEMP 37.1; O2SAT 100
--- NOTE | 2022-05-11 13:05 | MHC.CM.PN ---
EMR REVIEWED, PER HOSPITALIST PT WILL NEED ENDOSCOPY, ANTIC THIS WILL NOT BE DONE UNTIL SATURDAY, PLAN REMAINS FOR PT TO RETURN TO [facility] WHERE SHE HAS BEEN LIVING X 3YRS, PT WILL NEED TRANSPORT HOME. CM WILL CONT TO FOLLOW D/C NEEDS
[2022-05-11 15:30] VITALS: BP 159/69; PULSE 80; RESP 18; TEMP 37.3; O2SAT 97
--- NOTE | 2022-05-11 15:51 | MHC.RECOVRN ---
This fiction and nonfiction writer prose met w/ pt, pt alert, laying in bed. Pt reports is feeling better, pt ate first full meal today. Pt expressed interest in starting Suboxone again, pt states interested in getting engaged back with [employer] in [place], whom pt was receiving Suboxone 10mg BID from end of February.
--- NOTE | 2022-05-11 17:04 | P.EN_ITS ---
Event Note Date of Service: 05/11/22 Event Note: GI Consult-Full note dictated-Hx via patient, EMR, and records from [facility], [place](I put those in the chart and asked for them to be scanned into the EMR as well), Imp: 56 yo female with severe Iron deficiency anemia, but with Hemoccult negative stool and without any reported signs of bleeding, presenting with associated UGI c/o epigastric burning, some occasional early satiety, GERD, intermittent N/V, fatigue, and weakness. EGD in 2019 at [facility] [place] revealed a duodenal ulcer, pyloric stricture, and a stenosis in the distal duodenal bulb that could not be passed with a scope and was not dilated at the time. She has not had any subsequent upper endoscopies. She had a negative colonoscopy in 12/2020 at [facility] [place], although the prep was only adequate . She does take 1 or 2 aspirin per day fairly regularly. She smokes occasionally and denies EtOH. She had been on a daily PPI and H2-viktor but ran out of those about 2 months ago. She has been stable since admission and currently denies any GI symptoms. Diff dx: Recurrent ulcer disease with an associated recurrent pyloric and/or duodenal stricture; other GI source such as missed lesions on colonoscopy in 12/2020, AVM's, esophagitis, and/or gastritis. Rec: EGD with possible dilation and colonoscopy on Saturday, 05/14, with me or Dr. Wasserman. Full consent has been obtained from her for this, including risks of bleeding and perforation. Follow Hgb. Change to po PPI. D/C oral Iron for now. Diet changes and prep orders have been place for the weekend. Dr. Alvarado is covering the weekend if problems or questions arise. Thanks.
[2022-05-11] MEDS: Omeprazole 20 MG CAPSULE.DR PO (17:05)
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
[2022-05-11 19:05] VITALS: BP 137/80; PULSE 82; RESP 18; TEMP 37.1; O2SAT 95
[2022-05-11] MEDS: QUEtiapine Fumarate 25 MG TABLET PO (22:29)
[2022-05-11 23:28] VITALS: BP 141/70; PULSE 96; RESP 16; TEMP 36; O2SAT 100
[2022-05-12 03:50] VITALS: BP 158/77; PULSE 71; RESP 16; TEMP 36.6; O2SAT 96
--- NOTE | 2022-05-12 04:40 | CONS_ITS ---
DATE OF SERVICE: 05/11/2022 REASON FOR CONSULTATION: Iron-deficiency anemia. HISTORY OF PRESENT ILLNESS: Obtained from [facility] records, the patient , and the EMR. The patient is a 56-year-old female who was admitted here after being found with a heroin overdose and then subsequently being noted to be quite anemic. Since admission the patient was treated for the overdose successfully and she has subsequently been receiving care for the anemia. She does describe a history of anemia over the past 5 or 6 years, for which she has been hospitalized and received transfusions. She describes her most recent hospitalization was about 1 year ago at [facility]. According to the December, colonoscopy report the exam was negative and the preparation was adequate . Her upper endoscopy in 2019 revealed a nonbleeding duodenal bulb ulcer, some pyloric narrowing dilated by passage of the scope, and a stenosis of the more distal duodenal bulb which was not passed with the scope nor dilated with a balloon. She has received transfusions on at least 2 or 3 separate occasions since 2015 by her history. She describes that she is usually on a daily PPI and a daily dose of famotidine for reflux and abdominal discomfort. However, over the past couple of months, she says she ran out of that and has not been using it. She describes taking 1 or 2 aspirin almost daily. She denies use of any other NSAIDs. She smokes cigarettes occasionally. She does not use any alcohol. She does have a history of substance abuse, including heroin. Over the past couple of months, she has noted some intermittent nausea and vomiting, as well as some postprandial fullness. She does have intermittent upper abdominal pain. She denies any dysphagia, hematemesis, nor coffee-ground emesis. Her appetite is fairly good. Aside from the upper abdominal pain, she denies any other abdominal pains nor jaundice. She describes that her bowel movements have been brown and without any sign of hematochezia nor melena. Prior to coming into the hospital she describes that she has been quite fatigued and weak. She does not take any iron supplements. She thinks 1 or 2 of her grandparents may have had colon cancer, but is not very sure about that. Aside from the upper endoscopy and colonoscopy that she had about a year ago at [facility], she does not recall any other procedures. Since admission here, she has otherwise been stable. She has received 3 units of packed red blood cells. A stool for Hemoccult testing was negative. She has been tolerating her diet. She did receive some IV iron and was started on oral iron. CURRENT MEDICATIONS: Include IV pantoprazole, famotidine, acetaminophen, Colace, Atarax p.r.n., IV Zofran p.r.n., lisinopril, and IV pantoprazole. PAST MEDICAL HISTORY: Upper endoscopy and colonoscopy as above. Duodenal ulcer and duodenal stricture as above. She describes surgery for a broken arm. She denies any other surgeries. She describes anemia for which she has needed transfusions.Substance abuse. She denies a history of [place], diabetes, stroke. No lung disease. SOCIAL HISTORY: She smokes cigarettes occasionally. She does not use any alcohol. Substance abuse with heroin. REVIEW OF SYSTEMS: CONSTITUTIONAL: She has been feeling weak and tired over the past of couple months. CARDIAC: No chest pain. PULMONARY: No cough. No hemoptysis. GI: As above. PHYSICAL EXAMINATION: GENERAL: The patient is a pale, but alert, comfortable-appearing female in no distress. She is cooperative and answers questions appropriately. SKIN: Warm and dry. Anicteric sclerae. CHEST: Clear. CARDIAC: S1, S2. ABDOMEN: Soft, nondistended, nontender without mass. EXTREMITIES: Without edema. LABORATORY DATA: White blood cell count 7.9, hemoglobin 9.1 after 3 units of blood. Her initial hemoglobin was 5.3 with MCV of 75. She did have a hemoglobin of 11.9 back in May 2021. White blood cell count was 7.9 with a platelet count of 452,000 today. PT 11.0 with INR 1.0. Normal electrolytes. BUN and creatinine normal. Iron is 8, iron saturation 1%, ferritin 3. Liver profile completely normal. Albumin 4.3, vitamin B12 and folate are normal. Stool was Hemoccult negative. Toxicology screen was positive for fentanyl and cocaine. COVID was negative. IMPRESSION: Given the patient's significant microcytic and iron deficiency anemia, along with her previous GI history, predominantly upper gastrointestinal complaints, her having run out of her acid suppression medications, and use of intermittent aspirin, I would think the most likely cause of her anemia would be that of an upper GI process such as ulcer disease, gastritis, and/or esophagitis. She may have a significant stricture in the pylorus or duodenum based on the upper endoscopy findings in 2019 and her current upper GI symptoms I would recommend an upper endoscopy with possible dilation, as well as a colonoscopy, during this admission to be sure she does not have any significant bleeding source such as recurrent ulcer disease, angiodysplasias, or GI neoplasm. Given her social situation, we shall try to do these as an inpatient. Full consent has been obtained from her for both procedures, including risks of bleeding and perforation. I did advise that the upper endoscopy and colonoscopy would be done by either myself or Dr. Wasserman with monitored anesthesia care. In the meantime, I will continue to follow her blood count carefully. I would hold her oral iron until we have done the colonoscopy. I will switch her back to an oral PPI. Depending upon her clinical course and the results of her GI procedures, she may need further evaluation with a small bowel video capsule study. 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 This has been discussed with her in detail and she is comfortable with this plan. Thank you for the consultation. MD CHANTAL Escobar/KELLY / [id number]
[2022-05-12] MEDS: Omeprazole 20 MG CAPSULE.DR PO ×2 (05:34→15:09)
[2022-05-12 06:02] LABS: Hematocrit 29.1 % (37.0-47.0); Mean Corpuscular HGB Conc 30.9 g/dl (31.0-35.0); Mean Corpuscular Hemoglobin 25.7 pg (27.0-33.0); Mean Corpuscular Volume 83.1 fL (80.0-98.0); Mean Platelet Volume 9.8 fL (9.4-12.3); Platelet Count 441 X10*3/uL (160-400); Red Cell Distribution Width 22.9 % (11.0-16.0); White Blood Count 8.8 X10*3/uL (4.8-10.8)
[2022-05-12 07:48] VITALS: BP 175/84; PULSE 76; RESP 17; TEMP 36.9; O2SAT 98
[2022-05-12] MEDS: buPROPion HCl XL 150 MG TAB.ER.24H PO (08:18)
[2022-05-12] MEDS: lisinopriL 20 MG TABLET PO (08:18)
[2022-05-12] MEDS: 0.9 % Sodium Chloride Flush 3 ML SYRINGE IVFLUSH (08:19)
[2022-05-12] MEDS: Acetaminophen 325 MG TABLET 650 MG PO ×3 (08:19→22:46)
[2022-05-12] MEDS: Amphetamine Mixed Salts 20 MG TABLET 30 MG PO ×2 (08:24→15:09)
[2022-05-12 12:00] VITALS: BP 155/81; PULSE 91; RESP 16; TEMP 36.8; O2SAT 100
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
--- NOTE | 2022-05-12 13:54 | PC.NURSE ---
Patient resting in NAD, patietn reports feeling much better today. Patient showered. c/o of left arm pain where IV is, red and swollen. IV taken out. Tolerating PO no issues, aware and agrees with plan for endoscopy colonoscopy saturday.
[2022-05-12 14:53] VITALS: BP 166/86; PULSE 92; RESP 18; TEMP 37.1; O2SAT 97
[2022-05-12 18:49] VITALS: BP 164/81; PULSE 95; RESP 18; TEMP 36.3; O2SAT 100
[2022-05-12] MEDS: QUEtiapine Fumarate 25 MG TABLET PO (22:46)
[2022-05-12] MEDS: hydrOXYzine HCL 50 MG TABLET PO (22:46)
[2022-05-12 23:23] VITALS: BP 166/88; PULSE 86; RESP 18; TEMP 36.6; O2SAT 98
[2022-05-13 02:58] VITALS: BP 139/81; PULSE 90; RESP 16; TEMP 36.6; O2SAT 97
[2022-05-13] MEDS: Omeprazole 20 MG CAPSULE.DR PO ×2 (05:22→15:48)
[2022-05-13] MEDS: Acetaminophen 325 MG TABLET 650 MG PO ×2 (07:54→23:59)
[2022-05-13] MEDS: buPROPion HCl XL 150 MG TAB.ER.24H PO (07:55)
[2022-05-13] MEDS: Amphetamine Mixed Salts 20 MG TABLET 30 MG PO ×2 (07:55→15:48)
[2022-05-13] MEDS: lisinopriL 20 MG TABLET PO (07:55)
[2022-05-13 08:00] VITALS: BP 173/90; PULSE 85; RESP 15; TEMP 37.3; O2SAT 95
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
[2022-05-13 11:41] VITALS: BP 171/92; PULSE 88; RESP 15; TEMP 37.6; O2SAT 96
[2022-05-13 15:08] VITALS: BP 163/82; PULSE 105; RESP 18; TEMP 36.8; O2SAT 98
[2022-05-13] MEDS: 0.9 % Sodium Chloride Flush 3 ML SYRINGE IVFLUSH ×2 (15:48→19:53)
[2022-05-13] MEDS: bisacodyL 5 MG TABLET.DR 10 MG PO ×2 (15:48→19:52)
[2022-05-13] MEDS: SUMAtriptan succinate 50 MG TABLET PO (15:55)
[2022-05-13] MEDS: PEG 3350/Na Sulf,Bicarb,Cl/KCL 4,000 ML SOLN.RECON 4000 ML PO (17:33)
--- NOTE | 2022-05-13 18:01 | PC.NURSE ---
Patient requesting to speak to psychiarty before she departs hospital to get stabilized with medications, and im anxious . Patient denies feeling suicidal or homicidal at this time. Calm cooperative, talkative. Taking all medications as prescribed.
[2022-05-13 18:58] VITALS: BP 164/79; PULSE 98; RESP 18; TEMP 36.2; O2SAT 98
--- NOTE | 2022-05-13 21:56 | MHC.SHP ---
Pre-Procedural Eval Section A Date of Service: 05/14/22 The patient is an INPATIENT: Yes The History & Physical has been completed within 30 days and I have reviewed it.: Yes Section B Chief Complaint: symptomatic anemia Allergies: Allergies Allergy/AdvReac Type Severity Reaction Status Date / Time From Located Within [facility] Allergy Unknown [place] Uncoded 04/07/20 17:00 Plan I have reviewed the history and physical and performed a pertinent physical examination on my patient. No changes have occurred unless specified.
[2022-05-13 23:39] VITALS: BP 160/85; PULSE 89; RESP 18; TEMP 36.7; O2SAT 99
[2022-05-13] MEDS: QUEtiapine Fumarate 25 MG TABLET PO (23:55)
[2022-05-13] MEDS: hydrOXYzine HCL 50 MG TABLET PO (23:55)
[2022-05-14] VITALS (9 sets, daily range): BP systolic 145–167; BP diastolic 73–97; PULSE 77–105; RESP 15–20; TEMP 36.5–37.3; O2SAT 95–100
[2022-05-14] MEDS: QUEtiapine Fumarate 25 MG TABLET PO (02:59)
--- NOTE | 2022-05-14 03:04 | PC.NURSE ---
Pt complained of increased anxiety and sleeplessness. Second order of PRN seroquel 25 Mg for insomnia given.
[2022-05-14] MEDS: Omeprazole 20 MG CAPSULE.DR PO ×2 (05:30→15:38)
[2022-05-14 05:36] LABS: MANUAL DIFF FLAG NO
[2022-05-14 05:43] LABS: Basophils Percent Auto 0.5 % (0-2); Eosinophils Absolute Auto 0.2 X10*3/uL (0.0-0.4); Eosinophils Percent Auto 2.5 % (0-4); Hematocrit 32.8 % (37.0-47.0); Hemoglobin 10.4 g/dl (12.0-16.0); Imm Gran Abs Auto 0.04 X10*3/uL (0.00-0.03); Imm Gran Pct Auto 0.5 % (0.0-0.4); Lymphocytes Absolute Auto 2.6 X10*3/uL (1.2-4.9); Lymphocytes Percent Auto 34.6 % (20-40); Mean Corpuscular HGB Conc 31.7 g/dl (31.0-35.0); Mean Corpuscular Hemoglobin 26.5 pg (27.0-33.0); Mean Corpuscular Volume 83.5 fL (80.0-98.0); Mean Platelet Volume 9.5 fL (9.4-12.3); Monocytes Absolute Auto 0.7 X10*3/uL (0.1-1.2); Neutrophils Percent Auto 52.9 % (45-73); Platelet Count 521 X10*3/uL (160-400); Red Blood Count 3.93 X10*6/uL (4.20-5.50); Red Cell Distribution Width 24.5 % (11.0-16.0); White Blood Count 7.5 X10*3/uL (4.8-10.8)
[2022-05-14 06:02] LABS: Anion Gap 18 (12-20); Blood Urea Nitrogen 5 mg/dL (9-16); Calcium 9.8 mg/dL (8.4-10.2); Carbon Dioxide 24 mmol/L (22-29); Chloride 105 mmol/L (96-108); Creatinine Clr Calc Pharmacy 77.5; Estimated Glomerular Filt Rate > 60; Glucose Fasting 81 mg/dL (60-99); Potassium 4.1 mmol/L (3.3-5.1); Sodium 143 mmol/L (135-145)
[2022-05-14] MEDS: lisinopriL 20 MG TABLET PO (08:44)
[2022-05-14] MEDS: Amphetamine Mixed Salts 20 MG TABLET 30 MG PO ×2 (08:44→15:06)
[2022-05-14] MEDS: buPROPion HCl XL 150 MG TAB.ER.24H PO (08:44)
[2022-05-14] MEDS: 0.9 % Sodium Chloride Flush 3 ML SYRINGE IVFLUSH ×4 (08:50→22:24)
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
--- NOTE | 2022-05-14 13:42 | MHC.CM.PN ---
per rounds pt may be dcd tues to psych pending colonoscopy
[2022-05-14] MEDS: hydrOXYzine HCL 25 MG TABLET PO (14:48)
[2022-05-14] MEDS: Acetaminophen 325 MG TABLET 650 MG PO (15:36)
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
--- NOTE | 2022-05-14 18:44 | P.BOP_ITS ---
Brief Operative Note Date of Service: 05/14/22 Pre-op diagnosis: Anemia, vomiting Post-op diagnosis: other (Pyloric stricture, Hiatal hernia, Internal hemorrhoids, Diverticulosis) Procedure: EGD with Pyloric Balloon Dilation from 8mm to 9mm to 10mm to 11mm to12mm, and gastric biopsies; Colonoscopy to the cecum and TI Surgeon: Yuan Larry Anesthesia: MAC Was an [employer] used for this Procedure?: No Estimated blood loss (mL): 2.0 Pathology: other (A. Gastric antrum) Condition: stable Disposition: PACU
--- NOTE | 2022-05-14 18:49 | PM.EVENT ---
Event Note Date of Service: 05/14/22 Event Note: GI--EGD/Colonoscopy--Full note dictated Findings: EGD 1. Tight pyloric stricture-would not allow passage of scope--dilated with an 8mm to 9mm to 10mm balloon. Able to then pass with the scope. The pyloric channel was friable but no obvious ulcer. I then dilated the pylorus with a 10mm to 11mm to 12mm balloon with further good effect. 2. Duodenal bulb and 2nd/3rd portions of duodenum WNL-no stricture/no ulcer 3. Given the friability and disruption of the pyloric stricture at that point no further dilation was performed 4. Antrum WNL-Bx x 3 to R/O H.pylori 5. Hiatal hernia Colonoscopy to the cecum and TI 1. Sigmoid diverticulosis 2. Internal hemorrhoids Plan: High dose po PPI, advance diet and observe, resume oral Iron, needs to avoid all aspirin and NSAIDs senior living, repeat EGD with further pyloric dilation in 2-4 weeks. Treat H.pylori if positive. D/W patient. Thanks
[2022-05-14] MEDS: Omeprazole 40 MG CAPSULE.DR PO (19:43)
[2022-05-14] MEDS: busPIRone HCl 5 MG TABLET 15 MG PO (20:49)
[2022-05-14] MEDS: cloNIDine HCL 0.2 MG TABLET PO (20:49)
[2022-05-14] MEDS: Acetaminophen 325 MG TABLET 975 MG PO (20:49)
[2022-05-14] MEDS: QUEtiapine Fumarate 50 MG TABLET PO (22:24)
[2022-05-15] VITALS: BP 129/65; PULSE 88; RESP 18; TEMP 37.3; O2SAT 100
[2022-05-15 03:55] VITALS: BP 118/68; PULSE 95; RESP 18; TEMP 37.3; O2SAT 95
[2022-05-15 05:31] LABS: MANUAL DIFF FLAG NO
[2022-05-15 05:36] LABS: Basophils Percent Auto 0.5 % (0-2); Eosinophils Absolute Auto 0.2 X10*3/uL (0.0-0.4); Eosinophils Percent Auto 2.4 % (0-4); Hemoglobin 9.5 g/dl (12.0-16.0); Imm Gran Abs Auto 0.02 X10*3/uL (0.00-0.03); Imm Gran Pct Auto 0.3 % (0.0-0.4); Lymphocytes Percent Auto 32.5 % (20-40); Mean Corpuscular HGB Conc 30.6 g/dl (31.0-35.0); Mean Corpuscular Volume 84.7 fL (80.0-98.0); Mean Platelet Volume 9.7 fL (9.4-12.3); Monocytes Absolute Auto 0.7 X10*3/uL (0.1-1.2); Monocytes Percent Auto 11.2 % (2-11); Neutrophils Absolute Auto 3.3 x10*3/uL (2.0-8.3); Neutrophils Percent Auto 53.1 % (45-73); Platelet Count 451 X10*3/uL (160-400); Red Blood Count 3.66 X10*6/uL (4.20-5.50); Red Cell Distribution Width 25.3 % (11.0-16.0); White Blood Count 6.2 X10*3/uL (4.8-10.8)
[2022-05-15] MEDS: Omeprazole 40 MG CAPSULE.DR PO (06:25)
--- NOTE | 2022-05-15 06:47 | OP_ITS ---
SURGEON: Yuan Larry MD INDICATIONS: The patient presents for evaluation of significant iron deficiency anemia, intermittent vomiting, and previous history of a pyloric stricture. Full consent has been obtained from her for this, including risks of bleeding and perforation. PREOPERATIVE DIAGNOSIS: POSTOPERATIVE DIAGNOSIS: PROCEDURE PERFORMED: Esophagogastroduodenoscopy with pyloric balloon dilation and biopsies, and colonoscopy to the cecum and terminal ileum. ESTIMATED BLOOD LOSS: COMPLICATIONS: ANESTHESIA: Monitored anesthesia care. ASSISTANTS: SPECIMENS: PREOPERATIVE DIAGNOSES: Iron deficiency anemia, vomiting, history of pyloric stricture. POSTOPERATIVE DIAGNOSES: Iron deficiency anemia, vomiting, history of pyloric stricture, tight pyloric stricture, hiatal hernia, diverticulosis, and internal hemorrhoids. DESCRIPTION OF PROCEDURE: The patient was placed in the left lateral decubitus position. The Olympus video gastroscope was passed in the posterior oropharynx and upper esophagus under direct vision. The scope was passed slowly to the distal esophagus. The gastroesophageal junction appeared at 35 cm. This area appeared regular, without any sign of esophagitis nor any Minaya's mucosa. There was a small hiatal hernia. The scope was advanced to the region of the pylorus. The pyloric opening was quite narrow. Small portions that I could visualize did not show any signs of mass or ulceration. I could not pass the pylorus with the scope despite some moderate pressure. Again, there was no obvious ulceration. The gastric antrum and body appeared normal with good peristalsis. The scope was retroflexed visualizing the proximal stomach carefully, which appeared normal, without any sign of mass or ulceration. The scope was straightened. I then used a [employer] incremental pyloric dilating balloon to dilate the pylorus from 8 mm to 9 mm to 10 mm at the recommended pressure for approximately 60 seconds each. Post-dilation, there was heme noted. There was some disruption of the pyloric stricture at that point. I was then able to advance the scope past this into the duodenal bulb. The duodenal bulb appeared normal. I was able to enter the 2nd and 3rd portions of the duodenum easily. The 2nd and 3rd portions of the duodenum appeared normal. I did not visualize any sign of narrowing at the junction of the duodenal bulb and 2nd portion of the duodenum. The scope was withdrawn back into the stomach. I then used a [employer] incremental pyloric dilating balloon to dilate the pyloric channel further from 10 mm to 11 mm to 12 mm with good effect. Post-dilation, there was definitely friability and heme noted with further disruption of the pyloric stricture. Again, it was easy to pass the scope beyond this into the duodenum. Therefore, no further dilation was attempted. I did obtain 3 biopsies from the gastric antrum to inspect for H pylori. The scope was withdrawn back to the esophagus the esophageal mucosa appeared normal. The scope was withdrawn from the patient. She was turned around for colonoscopy. The digital rectal exam revealed no abnormalities. The Olympus video pediatric colonoscope was entered into the rectum and advanced easily to the cecum. Once in the cecum, I did identify normal-appearing cecal pouch with appendiceal orifice and a normal-appearing ileocecal valve. There was transillumination of light deep in the right lower quadrant. The terminal ileum was cannulated and appeared normal. The scope was withdrawn back in the colon. The entire cecum and ileocecal valve appeared normal. The scope was then slowly withdrawn assessing all mucosal surfaces carefully. Preparation was excellent. I did not visualize any sign of polyps, colitis, nor angiodysplasia. There was a mild amount of sigmoid diverticulosis. In the rectum, the scope was retroflexed visualizing internal hemorrhoids, but no other pathology. The rectal mucosa appeared normal. The scope was straightened and withdrawn from the patient. She tolerated the procedures well and was returned to the recovery area in stable condition. IMPRESSION: 1. Pyloric stricture, status post balloon dilation. 2. Rule out Helicobacter pylori. 3. Hiatal hernia. 4. Diverticulosis. 5. Internal hemorrhoids. PLAN: The results of the biopsies will be checked. If H pylori is present I would recommend treating that. She will continue her high-dose oral PPI. Her diet will be advanced to a low residue and soft diet. She needs to avoid all aspirin and NSAIDs long-term. I would recommend a repeat upper endoscopy in the next 2-4 weeks with further balloon dilation of the pylorus. She will be restarted on her oral iron as well. If the patient is tolerating her diet, she could be discharged from my standpoint in the next 24 hours. This has been discussed with the patient. MD CHANTAL Escobar/KELLY / [id number] RAYMUNDO
[2022-05-15 07:42] VITALS: BP 136/82; PULSE 89; RESP 18; TEMP 36.1; O2SAT 97
[2022-05-15] MEDS: lisinopriL 20 MG TABLET PO (07:52)
[2022-05-15] MEDS: buPROPion HCl XL 150 MG TAB.ER.24H PO (07:52)
[2022-05-15] MEDS: busPIRone HCl 5 MG TABLET 15 MG PO (07:53)
[2022-05-15] MEDS: Amphetamine Mixed Salts 20 MG TABLET 30 MG PO ×2 (07:53→14:07)
[2022-05-15] MEDS: Ferrous Sulfate 324 MG TABLET.DR PO (07:53)
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
[2022-05-15 11:26] VITALS: BP 158/80; PULSE 101; RESP 18; TEMP 36.2; O2SAT 100
--- NOTE | 2022-05-15 12:16 | MHC.RECOVRN ---
Met with pt in 345 to follow up regarding desire to restart Suboxone. Pt awake, alert, easily engages in conversation. Pt does not appear to be experiencing withdrawal symptoms. Pt continues to express desire to restart and return to care at [facility] in [place]. T/w scheduled appointment for 3:15 on , CM and pt aware. Discussed with Pricila Keene APRN. Pt will be sent prescription to bridge until . Pt denies questions or concerns, provided with t/w contact information if needed.
--- NOTE | 2022-05-15 12:56 | MHC.CM.PN ---
Addendum entered by Carla Guillermo RN 05/15/22 13:29: PT NOW SAYING SHE CANNOT GET A RIDE HOME, [facility] CAN NOT TRANSPORT D/T LOCATION IN [place], PT-1 TRANSPORT TO BE BOOKED. Original Note: PT MEDICALLY CLEARED FOR D/C HOME, PT MET W/RECOVERY NURSE WHO REPORTS PROVIDER WILL RESTART HER ON SUBOXONE AND PT HAS APPT SET UP W/[place] THURSDAY 05/17 AT 3:15PM, CM ALSO VERIFIED PCP FARIHA ESQUIVEL NP IN [facility], FARIHA REPORTS PT HAS AN IN PERSON APPT ON 05/22 AT 12:30PM, PT IS ELIGIBLE FOR PT-1 TRANSPORT AND CM WILL SET UP FOR PT. PT REPORTS SHE DOESN'T WANT TO LEAVE UNTIL AFTER LUNCH AND THAT SHE CAN GET HER OWN RIDE HOME. PT-1 TRANSPORT SET UP FOR PCP APPT.
[2022-05-15] MEDS: Naloxone HCl Nasal TAKE HOME 4 MG SPRAY NOSTRILALT (13:23)
[2022-05-15] MEDS: SUMAtriptan succinate 50 MG TABLET PO (13:36)
== END 2022-05-15 15:09 | disposition home or self-care (01) | DRG 918 ==
LOC: HO.ED 05-09 01:50 → HO.EDOVER 05-09 01:55 → HO.S3 05-09 19:30
PROVIDERS: Hospitalist; Internal Medicine; Nurse Practitioner Psychiatric/Mental Health; Admitting Provider Internal Medicine; Emergency Provider Emergency Medicine; PCP Nurse Practitioner Family; Visit Provider Student in an Organized Health Care Education/Training Program
PROC: 0D768ZZ Dilation of Stomach, Via Natural or Artificial Opening Endoscopic (ICD-10-PCS; principal; 2022-05-14 14:40)
PROC: 0DJD8ZZ Inspection of Lower Intestinal Tract, Via Natural or Artificial Opening Endoscopic (ICD-10-PCS; CPT 45378; 2022-05-14 14:40)
DX: T40.1X1A Poisoning by heroin, accidental (unintentional), initial encounter (principal); I24.8 Other forms of acute ischemic heart disease; F33.1 Major depressive disorder, recurrent, moderate; K31.1 Adult hypertrophic pyloric stenosis; D50.9 Iron deficiency anemia, unspecified; F11.10 Opioid abuse, uncomplicated; H70.93 Unspecified mastoiditis, bilateral; K44.9 Diaphragmatic hernia without obstruction or gangrene; K57.30 Diverticulosis of large intestine without perforation or abscess without bleeding; K64.8 Other hemorrhoids; F90.9 Attention-deficit hyperactivity disorder, unspecified type; F43.10 Post-traumatic stress disorder, unspecified; F17.210 Nicotine dependence, cigarettes, uncomplicated; Z59.01 Sheltered homelessness; Z71.6 Tobacco abuse counseling; Z20.822 Contact with and (suspected) exposure to COVID-19; Z79.899 Other long term (current) drug therapy
CPT/HCPCS: 36415; 70450; 71111; 80048; 80076; 80307; 82272; 82607; 82728; 82746; 83540; 83880; 84484; 85025; 85027; 85610; 86850; 86900; 86901; 86923; 87635; 88305; 88342; 93005; 93306; 93970; 99285; C1726; J1756; J2250; P9016